=== PATIENT | female | born 1990 | race Caucasian/White ===

== ENCOUNTER → 2017-06-03 16:42 | Outpatient (CLI) | payer OTHER, SELFPAY ==
[2017-06-03 17:59] LABS: Hematocrit 31.6 % (37-47); Hemoglobin 10.2 g/dl (12.0-15.0); Mean Corp Hgb Conc 32.3 g/gl (32-36); Mean Corpuscular Hgb 30.1 pg (27.0-32.0); Mean Corpuscular Volume 93.2 fL (81-99); Mean Platelet Vol. 10.3 fl (6.2-12.0); Platelet Count 229 K/mm3 (150-450); RBC Distribution Width CV 12.5 % (11.6-14.6); RBC Distribution Width SD 42.6 fl (35.1-43.9); Red Blood Count 3.39 M/mm3 (4.2-5.4); White Blood Count 12.5 K/mm3 (4.4-11.0)
[2017-06-03 18:10] LABS: Glucose Challenge Gest 1H 50g 74 mg/dL (70-140)
[2017-06-03 18:21] LABS: Scan Indicated on CBC? Y/N NO
[2017-06-04 17:53] LABS: Ferritin 7 ng/mL (8-252); Iron 65 ug/dL (50-170); Iron Binding Capacity,Total 532 ug/dL (250-450); PERCENT IRON SATURATION 12.2 % (15.0-55.0)
== END ==
PROVIDERS: Visit Provider Obstetrics & Gynecology
DX: Z34.82 Encounter for supervision of other normal pregnancy, second trimester (principal)
CPT/HCPCS: 82728; 82950; 83540; 83550; 85027

== ENCOUNTER → 2017-07-31 16:14 | Outpatient (CLI) | payer OTHER, SELFPAY ==
[2017-07-31 18:43] LABS: Group B Strep DNA By PCR Negative (Negative); Internal Control PASS; Probe Check PASS; Specimen Processing Control PASS
== END ==
PROVIDERS: Visit Provider Obstetrics & Gynecology
DX: Z36.85 Encounter for antenatal screening for Streptococcus B (principal)
CPT/HCPCS: 87081; 87653

== ENCOUNTER 2017-08-29 11:05 | Inpatient (IN) | payer OTHER, SELFPAY ==
[2017-08-29 09:57] VITALS: BMI 29.6
--- NOTE | 2017-08-29 11:05 | DT_ITS ---
This patient was seen during an EMR downtime August 31, 2017 - September 07, 2017. This patient may have a combination of paper and electronic documentation or all paper documentation. All documentation is viewable within the e-chart portion of [facility] for each patient visit.
[2017-08-29] MEDS: Lactated Ringers 1,000 ML 50 ML IV ×4 (11:32→19:04)
[2017-08-29 11:44] LABS: Hematocrit 38.4 % (37-47); Hemoglobin 12.6 g/dl (12.0-15.0); Mean Corp Hgb Conc 32.8 g/gl (32-36); Mean Corpuscular Hgb 30.4 pg (27.0-32.0); Mean Corpuscular Volume 92.5 fL (81-99); Mean Platelet Vol. 10.3 fl (6.2-12.0); Platelet Count 233 K/mm3 (150-450); RBC Distribution Width CV 13.7 % (11.6-14.6); Red Blood Count 4.15 M/mm3 (4.2-5.4); Scan Indicated on CBC? Y/N NO; White Blood Count 13.1 K/mm3 (4.4-11.0)
[2017-08-29] MEDS: fentaNYL-bupivacaine (epidural) 100 ML BAG EPIDURAL (12:12)
[2017-08-29] MEDS: 0.9% Saline Lock 10 ML Syringe IV (15:30)
[2017-08-29] MEDS: Oxytocin 30 units/NS 500 ml 30 UNITS/500 ML IV.SOLN 334 UNITS IV (21:02)
--- NOTE | 2017-08-29 21:20 | PCM.OB.VAG ---
Vaginal Delivery Maternal Presentation: Active Labor Amniotic Membrane Rupture Type: Artificial Amniotic Fluid Description: Clear Final DILSHAD: 08/27/17 Final DILSHAD Source: US <20 weeks Gestational age: 40 Weeks and 2 Days Date of Procedure: 08/29/17 Pre-Operative Diagnosis: IUP Post-Operative Diagnosis: IUP Surgery/ Procedure Performed: Vacuum Assisted Vaginal Delivery Type of Anesthesia: Epidural Description of Procedure: Spontaneous vaginal delivery of a viable female infant with Apgars of 9/10 from an occiput anterior presentation with clear amniotic fluid and normal three-vessel placenta. Cord around the neck ?1 tight. No episiotomy. Second-degree midline laceration repaired in layers with 3-0 Vicryl suture under epidural. Kiwi vacuum suction used ?1 gentle pull from low outlet after 4 hours of pushing and increasing maternal fatigue. Sponge counts okay. Delivery physician: Leo Rebollar MD. Presentation: Vertex Placental Delivery Description: Spontaneous Placenta Disposition: [facility] Cord Vessel Description: 3 Vessels Cord Gases drawn per routine: ABG Cord Entanglement: Around neck x 1, tight Estimated Blood Loss: 350 cc Infant A gender: Female (1 minute): 9 (5 minute): 10 Episiotomy Description: None Laceration: Midline, Perineal Extension/lac, 2nd degree Medications given after delivery: IV Pitocin, IM Methergin Complications: None
--- NOTE | 2017-08-29 21:23 | OP.PCM_ITS ---
Vaginal Delivery Maternal Presentation: Active Labor Amniotic Membrane Rupture Type: Artificial Amniotic Fluid Description: Clear Final DILSHAD: 08/27/17 Final DILSHAD Source: US <20 weeks Gestational age: 40 Weeks and 2 Days Date of Procedure: 08/29/17 Pre-Operative Diagnosis: IUP Post-Operative Diagnosis: IUP Surgery/ Procedure Performed: Vacuum Assisted Vaginal Delivery Type of Anesthesia: Epidural Description of Procedure: Spontaneous vaginal delivery of a viable female infant with Apgars of 9/10 from an occiput anterior presentation with clear amniotic fluid and normal three- vessel placenta. Cord around the neck ?1 tight. No episiotomy. Second-degree midline laceration repaired in layers with 3-0 Vicryl suture under epidural. Kiwi vacuum suction used ?1 gentle pull from low outlet after 4 hours of pushing and increasing maternal fatigue. Sponge counts okay. Delivery physician: Leo Rebollar MD. Presentation: Vertex Placental Delivery Description: Spontaneous Placenta Disposition: [facility] Cord Vessel Description: 3 Vessels Cord Gases drawn per routine: ABG Cord Entanglement: Around neck x 1, tight Estimated Blood Loss: 350 cc A gender: Female (1 minute): 9 (5 minute): 10 Episiotomy Description: None Laceration: Midline, Perineal Extension/lac, 2nd degree Medications given after delivery: IV Pitocin, IM Methergin Complications: None
--- NOTE | 2017-08-29 21:23 | PCM.DCVAG ---
Discharge Diet: No Restrictions Discharge Activity: May Shower, May Take a Tub Bath May resume sexual activity in: 4-6 weeks Additional Activity Instructions:: Nothing in the vagina for 4-6 weeks. You may return to work/school in 6 weeks. Call your doctor if you observe: Fever of 101 or Higher, Inability to urinate, Inability to have a bowel movement, Using more than one pad per hour Additional Instructions: If you experience any of the following, contact your healthcare provider. Bleeding that soaks a pad every hour for 2 hours Unrelieved incision or abdominal pain Swelling, redness, discharge or bleeding from your incision or episiotomy site Your incision begins to separate Problems urinating (including inability to urinate or burning while urinating). Visual changes Severe headache Flu-like symptoms Pain or redness in one of both of your breasts Pain, warmth, tenderness or swelling in your legs, especially the calf area Frequent nausea and vomiting Symptoms of depression or anxiety If you experience any of the following, call 911 or go to the nearest Emergency Room. Chest pain Problems breathing Seizure activity Partial or complete paralysis of a body part, slurred speech, weakness or drooping of the face, or a sudden inability to walk or hold your balance Allergies/Adverse Reactions: Allergies No Known Allergies Allergy (Verified 09/24/13 08:55) Medications to take at Discharge Ferrous Sulfate [Iron] 325 mg PO 08/29/17 Vit No.130/Iron/FA [ Vitamins] 1 each PO 08/29/17 Please Follow Up With: Joanna Martin MD - [phone] When: Call to make an appointment with your doctor in 6 weeks. Primary Care Physician: Smita Tamayo MD [Primary Care Provider] -
--- NOTE | 2017-08-29 21:24 | DCINST_ITS ---
Discharge Diet: No Restrictions Discharge Activity: May Shower, May Take a Tub Bath May resume sexual activity in: 4-6 weeks Additional Activity Instructions:: Nothing in the vagina for 4-6 weeks. You may return to work/school in 6 weeks. Call your doctor if you observe: Fever of 101 or Higher, Inability to urinate, Inability to have a bowel movement, Using more than one pad per hour Additional Instructions: If you experience any of the following, contact your healthcare provider. * Bleeding that soaks a pad every hour for 2 hours * Unrelieved incision or abdominal pain * Swelling, redness, discharge or bleeding from your incision or episiotomy site * Your incision begins to separate * Problems urinating (including inability to urinate or burning while urinating) . * Visual changes * Severe headache * Flu-like symptoms * Pain or redness in one of both of your breasts * Pain, warmth, tenderness or swelling in your legs, especially the calf area * Frequent nausea and vomiting * Symptoms of depression or anxiety If you experience any of the following, call 911 or go to the nearest Emergency Room. * Chest pain * Problems breathing * Seizure activity * Partial or complete paralysis of a body part, slurred speech, weakness or drooping of the face, or a sudden inability to walk or hold your balance Allergies/Adverse Reactions: Allergies No Known Allergies Allergy (Verified 09/24/13 08:55) Medications to take at Discharge Ferrous Sulfate [Iron] 325 mg PO 08/29/17 Vit No.130/Iron/FA [ Vitamins] 1 each PO 08/29/17 Please Follow Up With: Joanna Martin MD - [phone] When: Call to make an appointment with your doctor in 6 weeks. Primary Care Physician: Smita Tamayo MD [Primary Care Provider] -
[2017-08-29] MEDS: Oxytocin 30 units/NS 500 ml 30 UNITS/500 ML IV.SOLN 167 UNITS IV (21:32)
[2017-08-30 00:45] VITALS: BP 122/63; PULSE 115; RESP 18; TEMP 36.8; O2SAT 95
[2017-08-30 05:40] VITALS: BP 114/69; PULSE 110; RESP 18; TEMP 36.8; O2SAT 98
[2017-08-30 05:42] LABS: Hemoglobin 9.9 g/dl (12.0-15.0); Mean Corpuscular Hgb 30.8 pg (27.0-32.0); Mean Corpuscular Volume 93.5 fL (81-99); Mean Platelet Vol. 10.3 fl (6.2-12.0); Platelet Count 222 K/mm3 (150-450); RBC Distribution Width CV 13.3 % (11.6-14.6); RBC Distribution Width SD 44.4 fl (35.1-43.9); Red Blood Count 3.21 M/mm3 (4.2-5.4); White Blood Count 21.9 K/mm3 (4.4-11.0)
[2017-08-30 05:45] LABS: Scan Indicated on CBC? Y/N NO
[2017-08-30] MEDS: Ibuprofen 600 MG Tablet PO ×2 (05:55→16:22)
[2017-08-30 08:30] VITALS: BP 103/61; PULSE 108; RESP 12; TEMP 37.1; O2SAT 97
--- NOTE | 2017-08-30 09:20 | PCM.PN.OB ---
Subjective: Patient without complaints. Was having some pressure but has resolved. A bit dizzy when he gets up to the restroom. Minimal vaginal bleeding present. Breast-feeding going well. Feels okay when she is resting. - Physical Exam Vital Signs AF, VSS Temp Pulse Resp BP Pulse Ox 98.8 F 108 H 12 103/61 97 08/30/17 08:30 08/30/17 08:30 08/30/17 08:30 08/30/17 08:30 08/30/17 08:30 Oxygen Delivery Method Room Air Weight: 194 lb 14.218 oz Body Mass Index (BMI) 29.6 Intake and Output for Last 24 Hours 08/28/17 08/29/17 08/30/17 23:59 23:59 23:59 Intake Total 2901 / 2901 Output Total 1400 / 1400 1050 / 1050 Balance 1501 / 1501 -1050 / -1050 Laboratory Tests Past 24 Hrs 08/29/17 08/29/17 08/30/17 11:32 11:32 05:35 WBC 13.1 H 21.9 H RBC 4.15 L 3.21 L Hgb 12.6 9.9 L Hct 38.4 30.0 L MCV 92.5 93.5 MCH 30.4 30.8 MCHC 32.8 33.0 RDW 13.7 13.3 RDW Differential 46.0 H 44.4 H Plt Count 233 222 MPV 10.3 10.3 Blood Type O POSITIVE Antibody Screen NEGATIVE Medical Necessity - Tobacco Use Smoking Status: Never smoker Assessment/Plan Doing well status post delivery day #1. Mild anemia with mild symptoms from bleeding due to uterine atony just after delivery. Stable at present. Will repeat CBC tomorrow. Continuing present care.
[2017-08-30 12:45] VITALS: BP 109/70; PULSE 88; TEMP 36.5; O2SAT 97
[2017-08-30 16:00] VITALS: BP 113/74; PULSE 99; RESP 18; TEMP 36.8
[2017-08-30] MEDS: Senna/Docusate Sodium 1 Tablet PO (16:22)
[2017-08-30 20:01] VITALS: BP 113/68; PULSE 92; RESP 16; TEMP 36.6; O2SAT 98
[2017-08-30] MEDS: oxyCODONE 5 MG Tablet PO (20:10)
[2017-08-31 02:30] VITALS: BP 128/68; PULSE 103; RESP 18; TEMP 36.8; O2SAT 96
[2017-09-03 17:14] LABS: Absolute Lymphocyte Count 1.96 X10^3/ul (0.83-4.51); Absolute Neutrophil Count 9.6 X10^3/uL (2.0-7.7); Basophil% 0.3 % (0-1); Eosinophils% 1.5 % (0-5); Hematocrit 26.1 % (37-47); Hemoglobin 8.3 g/dl (12.0-15.0); Lymphocyte # 1.96 X10^3/ul (4.0); Lymphocyte % 15.1 % (19-41); Mean Corp Hgb Conc 31.8 g/gl (32-36); Mean Corpuscular Hgb 30.6 pg (27.0-32.0); Mean Corpuscular Volume 96.3 fL (81-99); Monocyte% 8.9 % (0-10); Neutrophil # 9.55 X10^3/uL (2.7-7.7); Neutrophil % 73.5 % (47-70); POSITIVE COUNT NO; POSITIVE DIFFERENTIAL NO; POSITIVE MORPHOLOGY NO; Platelet Count 207 K/mm3 (150-450); RBC Distribution Width CV 13.5 % (11.6-14.6); RBC Distribution Width SD 44.9 fl (35.1-43.9); Red Blood Count 2.71 M/mm3 (4.2-5.4)
== END 2017-08-31 15:05 | disposition home or self-care (01) | DRG 774 ==
LOC: WPOUT 11:09
PROVIDERS: Admitting Provider Obstetrics & Gynecology; Family Provider Family Medicine; PCP Family Medicine; Visit Provider Obstetrics & Gynecology
DX: O75.81 Maternal exhaustion complicating labor and delivery (principal); O72.1 Other immediate postpartum hemorrhage; Z37.0 Single live birth; O70.1 Second degree perineal laceration during delivery; O99.013 Anemia complicating pregnancy, third trimester; D50.9 Iron deficiency anemia, unspecified; O69.1XX0 Labor and delivery complicated by cord around neck, with compression, not applicable or unspecified; Z3A.40 40 weeks gestation of pregnancy
CPT/HCPCS: 59050; 85025; 85027; 86850; 86900; 99218; J7120; A4216; G0378

== ENCOUNTER 2017-09-01 14:00 | Outpatient (CLI) | payer OTHER, SELFPAY ==
--- NOTE | 2017-09-01 14:00 | DT_ITS ---
This patient was seen during an EMR downtime August 31, 2017 - September 07, 2017. This patient may have a combination of paper and electronic documentation or all paper documentation. All documentation is viewable within the e-chart portion of [email or web address] for each patient visit.
== END 2017-09-01 15:10 | disposition home or self-care (01) ==
LOC: WPOUT 09-08 09:42
PROVIDERS: Family Provider Family Medicine; PCP Family Medicine; Visit Provider Obstetrics & Gynecology
DX: R69 Illness, unspecified (principal)

== ENCOUNTER → 2017-10-16 10:18 | Outpatient (CLI) | payer OTHER, SELFPAY ==
[2017-10-16 11:53] LABS: Hematocrit 35.6 % (37-47); Mean Corp Hgb Conc 30.9 g/gl (32-36); Mean Corpuscular Hgb 26.7 pg (27.0-32.0); Mean Corpuscular Volume 86.4 fL (81-99); Mean Platelet Vol. 10.9 fl (6.2-12.0); Platelet Count 320 K/mm3 (150-450); RBC Distribution Width CV 13.8 % (11.6-14.6); RBC Distribution Width SD 43.9 fl (35.1-43.9); Red Blood Count 4.12 M/mm3 (4.2-5.4); Scan Indicated on CBC? Y/N NO; White Blood Count 5.2 K/mm3 (4.4-11.0)
[2017-10-16 12:10] LABS: Free T3 2.8 pg/mL (2.18-3.98); T4 Free Direct 0.86 ng/dL (0.76-1.46); Thyroid Stim Hormone (TSH) 0.97 uIU/mL (0.358-3.74)
== END ==
PROVIDERS: Visit Provider Obstetrics & Gynecology
DX: D64.9 Anemia, unspecified (principal); R53.83 Other fatigue
CPT/HCPCS: 36415; 84439; 84443; 84481; 85027

== ENCOUNTER → 2019-03-25 14:30 | Outpatient (CLI) | payer OTHER, SELFPAY ==
[2019-03-29 15:34] LABS: HPV Reflexed? NOT INDICATED
== END ==
PROVIDERS: Visit Provider Obstetrics & Gynecology
DX: Z12.4 Encounter for screening for malignant neoplasm of cervix (principal)
CPT/HCPCS: 88175; G0145

== ENCOUNTER → 2020-05-30 16:09 | Outpatient (CLI) | payer OTHER, SELFPAY | PROVIDERS: Visit Provider Obstetrics & Gynecology | DX: R30.0 Dysuria (principal); R35.0 Frequency of micturition | CPT/HCPCS: 87086; 87088 ==

== ENCOUNTER → 2020-07-04 17:03 | Outpatient (CLI) | payer OTHER, SELFPAY ==
--- NOTE | 2020-07-04 17:12 | RAD_ITS ---
HISTORY: Pain in left humerus distally and medially for 4 or 5 months. No known injury. Technique: Left arm AP, lateral, radiographs Comparison: None available Findings: No acute fracture or dislocation. Osseous mineralization, joint spaces, and alignment otherwise appear preserved as imaged. No focal abnormality or radiopaque foreign body is seen in the surrounding soft tissues. RAD/Humerus min 2 Views IMPRESSION: No acute osseous abnormality identified in the arm. at 2205 Reported and signed by: Nate Barger MD Electronically Signed: Nate Barger MD at 22:04 EDT Tel , Service support ,
== END ==
PROVIDERS: PCP Family Medicine; Referring Provider Family Medicine; Visit Provider Family Medicine
DX: M79.602 Pain in left arm (principal)
CPT/HCPCS: 73060

== ENCOUNTER → 2020-07-18 13:34 | Outpatient (CLI) | payer OTHER, SELFPAY ==
--- NOTE | 2020-07-18 13:37 | US_ITS ---
STUDY: ULTRASOUND BREAST - RIGHT REASON FOR EXAM: Female, 29 years old. Pain in the right breast. TECHNIQUE: Axial and longitudinal images of the RIGHT breast were performed with a high resolution ultrasound transducer. # OF IMAGES: 40 COMPARISON: Comparison is made with prior mammogram done earlier today. FINDINGS: RIGHT Breast: The retroareolar region was examined by ultrasound. No sonographic abnormality is seen. IMPRESSION: No sonographic abnormality is seen. ASSESSMENT CATEGORY: BIRADS Category 1: Negative. A letter regarding these results will be sent to the patient by the facility within 30 days. Electronically Signed: Wilberto De Paz MD at 15:15 EDT , Service support , STUDY: ULTRASOUND BREAST - LEFT REASON FOR EXAM: Female, 29 years old. Pain in the left breast. TECHNIQUE: Axial and longitudinal images of the LEFT breast were performed with a high resolution ultrasound transducer. # OF IMAGES: 40 COMPARISON: Comparison is made with prior mammogram done earlier in the day. FINDINGS: LEFT Breast: The retroareolar region of the breast was examined by ultrasound. No sonographic abnormality is seen. US/Breast Limited Unilateral IMPRESSION: No sonographic abnormality is seen. ASSESSMENT CATEGORY: BIRADS Category 1: Negative. A letter regarding these results will be sent to the patient by the facility within 30 days. Electronically Signed: Wilberto De Paz MD at 15:16 EDT , Service support ,
--- NOTE | 2020-07-18 13:37 | BI_ITS ---
MAMMOGRAPHY - BILATERAL DIAGNOSTIC REASON FOR EXAM: Female, 29 years old. Bilateral mastodynia. Retroareolar pain. PERTINENT HISTORY: Non-contributory. TECHNIQUE: Digital bilateral breast sheri (3D mammographic acquisition) in the CC and MLO projections. 2-D mediolateral oblique (MLO) and craniocaudad (CC) views of both breasts were obtained. CAD: Full Field Digital Mammography with Computer Added Detection was performed. COMPARISON: None. Baseline examination. FINDINGS: Breast Composition: The breasts are extremely dense, which lowers the sensitivity of mammography. There are no dominant masses or suspicious calcifications. Small benign appearing bilateral axillary lymph nodes. No other significant abnormalities are identified. BI/DIAG MAMM W/CAD, BILAT IMPRESSION: Negative diagnostic mammogram. With the patient''s history of bilateral breast pain, correlation with ultrasound is recommended. ASSESSMENT CATEGORY: BIRADS Category 0: Incomplete. Need additional imaging evaluation. A letter regarding these results will be sent to the patient by the facility within 30 days. Approximately 10% of breast cancers are not detected by mammography. A normal mammogram should not delay biopsy of a clinically suspicious abnormality. Electronically Signed: Wilberto De Paz MD at 14:55 EDT , Service support ,
== END ==
PROVIDERS: PCP Family Medicine; Referring Provider Obstetrics & Gynecology; Visit Provider Obstetrics & Gynecology
DX: N64.4 Mastodynia (principal)
CPT/HCPCS: 76642; 77062; 77066; G0279

== ENCOUNTER → 2020-08-01 16:23 | Outpatient (CLI) | payer OTHER, SELFPAY ==
[2020-08-01 17:14] LABS: Prolactin 25.5 ng/mL
== END ==
PROVIDERS: PCP Family Medicine; Referring Provider Obstetrics & Gynecology; Visit Provider Obstetrics & Gynecology
DX: N64.4 Mastodynia (principal)
CPT/HCPCS: 36415; 84146

== ENCOUNTER → 2020-08-16 17:01 | Outpatient (CLI) | payer OTHER, SELFPAY ==
--- NOTE | 2020-08-16 17:10 | MRI_ITS ---
STUDY: MRI BRAIN WITH AND WITHOUT CONTRAST (ATTENTION PITUITARY GLAND) REASON FOR EXAM: Female, 29 years old. HYPERPROLACTINEMIA TECHNIQUE: Standardized multiplanar fat and water weighted pulse sequences were obtained. IV 14cc dotarem was administered for the contrast portion of the examination. COMPARISON: None. FINDINGS: Normal size of the pituitary gland for the patient?s age and gender. Normal enhancement of the pituitary gland, without a demonstrated intrapituitary lesion. Normal infundibular stalk and suprasellar cistern. Normal optic chiasm and hypothalamus. Normal size of the ventricles and extra-axial spaces for the patient''s age. Normal white matter tracts of the supratentorial brain. There is no evidence for recent intracranial ischemia or other cause of cytotoxic edema on diffusion weighted imaging (DWI). Normal bilateral basal ganglia. Normal thalami. Normal flow voids within the major intracranial circulation suggesting patency by spin echo criteria. Normal venous enhancement. There is no enhancing intra-axial or extra-axial abnormality. There is no extra-axial fluid accumulation. Normal tectal plate and pineal gland. Normal midbrain, erasmo and medulla. Normal cerebellum. Normal basal cisterns. Normal bilateral temporal bones. Normal bilateral internal auditory canals. No demonstrated orbital abnormality, within the constraints of a routine brain study. Normal visualized paranasal sinuses. Normal calvarium and skull base. Normal visualized upper cervical spine. Normal visualized soft tissue structures. MRI/Brain W/WO Contrast IMPRESSION: Normal unenhanced and enhanced MRI of the pituitary gland. Electronically Signed: Nikolay Washington MD at 9:25 EDT Tel , Service support ,
== END ==
PROVIDERS: PCP Family Medicine; Referring Provider Obstetrics & Gynecology; Visit Provider Obstetrics & Gynecology
DX: E22.1 Hyperprolactinemia (principal)
CPT/HCPCS: 70553; A9575

== ENCOUNTER → 2020-09-13 16:09 | Outpatient (CLI) | payer OTHER, SELFPAY | PROVIDERS: PCP Family Medicine; Visit Provider Obstetrics & Gynecology | DX: R30.0 Dysuria (principal) | CPT/HCPCS: 87086; 87088 ==

== ENCOUNTER → 2020-09-25 16:54 | Outpatient (CLI) | payer OTHER, SELFPAY | PROVIDERS: PCP Family Medicine; Visit Provider Obstetrics & Gynecology | DX: N30.00 Acute cystitis without hematuria (principal) | CPT/HCPCS: 87086 ==

== ENCOUNTER → 2021-01-04 16:06 | Outpatient (CLI) | payer OTHER, SELFPAY ==
[2021-01-07 22:06] LABS: Chlamydia By Nucleic Acid AMP Negative (Negative)
[2021-01-08 07:56] LABS: Gonococcus By Nucleic Acid AMP Negative (Negative)
== END ==
PROVIDERS: PCP Family Medicine; Visit Provider Obstetrics & Gynecology
DX: Z11.3 Encounter for screening for infections with a predominantly sexual mode of transmission (principal)
CPT/HCPCS: 87491; 87591

== ENCOUNTER → 2021-01-23 18:06 | Outpatient (CLI) | payer OTHER, SELFPAY | PROVIDERS: PCP Family Medicine; Visit Provider Family Medicine | DX: J02.9 Acute pharyngitis, unspecified (principal) | CPT/HCPCS: 87070 ==

== ENCOUNTER → 2021-02-01 14:12 | Outpatient (CLI) | payer OTHER, SELFPAY ==
[2021-02-01 16:00] LABS: Absolute Lymphocyte Count 1.92 X10^3/uL (0.83-4.51); Absolute Neutrophil Count 8.5 X10^3/uL (2.0-7.7); Basophil# 0.07 X10^3/uL; Basophil% 0.6 % (0-1); Eosinophil# 0.03 X10^3/uL; Eosinophils% 0.3 % (0-5); Hematocrit 36.2 % (37-47); Hemoglobin 11.9 g/dL (12.0-15.0); Lymphocyte # 1.92 X10^3/ul (0.83-4.51); Lymphocyte % 16.9 % (19-41); Mean Corp Hgb Conc 32.9 g/dL (32-36); Mean Corpuscular Volume 88.3 fL (81-99); Mean Platelet Vol. 11.2 fl (6.2-12.0); Monocyte# 0.74 X10^3/uL; Monocyte% 6.5 % (0-10); NRBC Flagged by Analyzer 0 % (0-5); Neutrophil # 8.53 X10^3/uL (2.7-7.7); Neutrophil % 75.3 % (47-70); Platelet Count 292 K/mm3 (150-450); RBC Distribution Width CV 12.7 % (11.6-14.6); RBC Distribution Width SD 41.4 fl (35.1-43.9); White Blood Count 11.3 K/mm3 (4.4-11.0)
[2021-02-01 16:10] LABS: Amphetamine Urine VISTA NEGATIVE (<1000 ng/mL); Barbiturate Urine VISTA NEGATIVE (< 200 ng/mL); Benzodiazepine Urine VISTA NEGATIVE (< 200 ng/mL); Cocaine Urine VISTA NEGATIVE (< 300 ng/mL); Ecstacy Urine VISTA NEGATIVE (< 500 ng/mL); Methadone Urine VISTA NEGATIVE (< 300 ng/mL); PCP Urine VISTA NEGATIVE (< 25 ng/mL); THC Urine VISTA NEGATIVE (< 50 ng/mL); Vista UDS pH Range 6
[2021-02-01 16:18] LABS: Thyroid Stim Hormone (TSH) 0.45 uIU/mL (0.358-3.74)
[2021-02-01 16:23] LABS: Color, Urine Yellow (Yellow); Glucose, Dipstick Normal (Normal); Ketone-Dipstick 5 mg/dl (Negative); Leukocyte Esterase-Dipstick 25 /ul (Negative); Nitrite-Dipstick Negative (Negative); Occult Blood-Urine Negative /ul (Negative); Protein-Dipstick Negative (Negative); Urine Bilirubin Dipstick Negative (Negative); Urine Clarity Sl. Cloudy (Clear); Urine Urobilinogen Normal (Normal)
[2021-02-04 09:36] LABS: HIV - WCH Non-Reactive (Nonreactive); Hepatitis B Surface Antigen Non-Reactive (Nonreactive); Hepatitis C Antibody Non-Reactive (Nonreactive); Rubella IgG Reactive (Nonreactive); Syphilis Antibodies Non-reactive
== END ==
PROVIDERS: PCP Family Medicine; Visit Provider Obstetrics & Gynecology
DX: Z34.81 Encounter for supervision of other normal pregnancy, first trimester (principal)
CPT/HCPCS: 36415; 80307; 81002; 84443; 85025; 86703; 86762; 86780; 86803; 87086; 87088; 87340

== ENCOUNTER → 2021-02-19 16:43 | Outpatient (CLI) | payer OTHER, SELFPAY | PROVIDERS: PCP Family Medicine; Visit Provider Otolaryngology | DX: J02.9 Acute pharyngitis, unspecified (principal) | CPT/HCPCS: 87070 ==

== ENCOUNTER 2021-06-07 15:01 | Outpatient (CLI) | payer OTHER, SELFPAY ==
[2021-06-07 16:11] LABS: Hematocrit 31.3 % (37-47); Hemoglobin 10.5 g/dL (12.0-15.0); Mean Corp Hgb Conc 33.5 g/dL (32-36); Mean Corpuscular Hgb 30.2 pg (27.0-32.0); Mean Corpuscular Volume 89.9 fL (81-99); Mean Platelet Vol. 10.6 fl (6.2-12.0); Platelet Count 295 K/mm3 (150-450); RBC Distribution Width CV 12.6 % (11.6-14.6); RBC Distribution Width SD 41.5 fl (35.1-43.9); Red Blood Count 3.48 M/mm3 (4.2-5.4); White Blood Count 11.6 K/mm3 (4.4-11.0)
[2021-06-07 16:19] LABS: Glucose Challenge Gest 1H 50g 86 mg/dL (70-140)
[2021-06-11 18:15] LABS: Ferritin 7 ng/mL (8-252)
== END 2021-06-07 23:59 | disposition home or self-care (01) ==
LOC: WOBLAB 15:02
PROVIDERS: PCP Family Medicine; Visit Provider Obstetrics & Gynecology
DX: O99.012 Anemia complicating pregnancy, second trimester (principal); Z3A.00 Weeks of gestation of pregnancy not specified
CPT/HCPCS: 36415; 82728; 82950; 85027

== ENCOUNTER → 2021-08-13 | Outpatient (CLI) | payer OTHER, SELFPAY ==
[2021-08-13 17:01] LABS: Hematocrit 33.2 % (37-47); Hemoglobin 10.8 g/dL (12.0-15.0); Mean Corp Hgb Conc 32.5 g/dL (32-36); Mean Corpuscular Hgb 30.6 pg (27.0-32.0); Mean Corpuscular Volume 94.1 fL (81-99); Mean Platelet Vol. 10.6 fl (6.2-12.0); Platelet Count 236 K/mm3 (150-450); RBC Distribution Width SD 47.9 fl (35.1-43.9); Red Blood Count 3.53 M/mm3 (4.2-5.4); White Blood Count 10.9 K/mm3 (4.4-11.0)
[2021-08-13 18:36] LABS: Ferritin 15 ng/mL (8-252); Iron 156 ug/dL (50-170); Iron Binding Capacity,Total 515 ug/dL (250-450)
== END | disposition home or self-care (01) ==
LOC: WOBLAB 15:27
PROVIDERS: PCP Family Medicine; Visit Provider Obstetrics & Gynecology
DX: O99.02 Anemia complicating childbirth (principal); D50.9 Iron deficiency anemia, unspecified; Z3A.00 Weeks of gestation of pregnancy not specified
CPT/HCPCS: 36415; 82728; 83540; 83550; 85027; 87081

== ENCOUNTER 2021-09-05 05:40 | Outpatient (CLI) | payer OTHER, SELFPAY ==
[2021-09-05 05:54] VITALS: BP 114/79; PULSE 92; TEMP 36.7
[2021-09-05 05:56] VITALS: BMI 29.9
[2021-09-05 06:30] LABS: ROM Internal Control Test YES-OK TO RESULT pt. (Internal QC); ROM Patient Test Negative (Negative)
--- NOTE | 2021-09-11 09:30 | OB.TRI.NOTE ---
HPI - General General Date of Admission: 09/05/21 Date of Service: 09/05/21 HPI Narrative LALI FROREST, is a 30 F who presents at term with a gush of fluid at home. Minimal contractions were noted. PFSH PFSH Home Medications ferrous sulfate 325 mg (65 mg iron) tablet (Iron (ferrous sulfate)) 325 mg PO ANEMIA 08/29/17 [History Last Taken 09/04/21 19:00] vits no.130-ferrous fum 27 mg iron-folic acid 800 mcg tablet ( Vitamin) 1 ea PO 08/29/17 [History Last Taken 09/04/21 19:00] Allergy/AdvReac Type Severity Reaction Status Date / Time No Known Allergies Allergy Verified 09/24/13 08:55 Surgical History (Updated 09/05/21 @ 06:20 by Yaneli Murcia) History of surgery Social History Smoking Status: Never smoker History Elective abortions Hx Para 0 Spontaneous abortions Hx # Term Pregnancies Ectopic pregnancies Hx # Pregnancies Multiple births # of living children NST FHR Rate Baby A NST Reactive:: Yes FHR Category:: Category I Assessment & Plan (1) Leakage, amniotic fluid: PLAN: Plan Term intrauterine with some leaking of vaginal fluid. ROM test is negative. Reactive nonstress test. Minimal contractions and cervix nonthreatening. Will discharge to home with routine instructions for labor.
== END 2021-09-05 06:49 | disposition home or self-care (01) ==
LOC: WPOUT 05:44 → WP 05:44
PROVIDERS: PCP Family Medicine; Visit Provider Obstetrics & Gynecology
DX: O42.90 Premature rupture of membranes, unspecified as to length of time between rupture and onset of labor, unspecified weeks of gestation (principal); Z3A.00 Weeks of gestation of pregnancy not specified
CPT/HCPCS: 59025; 59050; 84112; 99218; G0378

== ENCOUNTER 2021-09-13 06:58 | Inpatient (IN) | payer OTHER, SELFPAY ==
[2021-09-13] VITALS (74 sets, daily range): BP systolic 112–162; BP diastolic 66–93; PULSE 73–160; TEMP 36.3–36.9; O2SAT 92–100; BMI 29.9
--- NOTE | 2021-09-13 07:30 | HP.PCM.OB_ITS ---
History and Physical Date of Admission: 09/13/21 ACOG ANTEPARTUM RECORD - HISTORY AND PHYSICAL (09/13/2021) Name: LALI REESE History of this : This is a 30 year old [id number] presents at 41 wks + 1 days gestation for scheduled induction of labor. OB Physician: Joanna Pimentel MD 's Physician: [facility] ...................................................................... : 1990 Age: 30 Address: [address] [place], [place] [address] Phone: (h) [phone] (O) [phone] Insurance Carrier: [facility] [id number] Emergency Contact: MAXWELL REESE/JED [phone] ...................................................................... Final DILSHAD: 09/05/21 By Ultrasound: PARITY: (G-Total Pregnancies P-Fullterm,Premature,Induced AB,Spont AB, Ectopics, Multiple,Living) DILSHAD CONFIRMATION: By LMP: 11/29/20 Initial Exam: 08/19/17 Final DILSHAD: 09/05/21 OB PROBLEM LIST: States close to needing transfusing after last del. Asking how to prevent. Is on gummy vitamins- unsure if iron included. Declines carrier screening, undecided about genetic screening EPDS today = 5 Has had flu shot & 2 Covid19. Considering booster. ALLERGIES: NKDA MEDICATIONS: ferrous sulfate 325 mg (65 mg iron) tablet One pill by mouth twice a day Gummies 400 mcg-35 mg-25 mg-5 mg chewable tablet One pill by mouth twice a day SOCIAL HISTORY: Smoking - Never Alcohol Use - RARELY not while Diet - One coffee q day. Water at least liter+ day. Lifestyle - moderate stress lifestyle Exercise - active work and Enc to walk 15-20 min. Employer - [employer] Job Description - [employer] Illicit Drug Use - denies use of street drugs Sexual Activity - Residence - lives with Hours Worked - 40 hours per week Spouse-Sig Other Name - Maxwell Reese Spouse-Sig Other Occupation - PT Tech in [employer] Spouse-Sig Other Phone No - [phone] Children Name(s) - Maren PRIOR DELIVERY HISTORY DEL DATE GEST LAB WT LB WT OZ TYPE ANES LABOR TX 02 Aug 18 40 23 8 9 Vacuu Epidural No ANTEPARTUM FLOW CHART VISIT GE RTC FU F F NH U U DATE WK MD WKS HT PN HR M SS BP ED WT NH GL D EF ST __ ____ ___ __ __ ___ __ __ __ ___ __ __ __ ___ __ 14 Aug 40 SHM 1 38 + + 130/82 sl 197 ne ne 2 50 -3 07 Aug 39 SHM 1 39 V + + 108/76 1+ 196 - - 2 50 -3 27 August 38 SHM 1 37 V + + 130/72 0 194 tr - 0 0 -5 July SHM 1 37 V + + 112/70 sl 191 tr ne 13 August 36 SHM 1 36 V + + 130/84 sl 192 tr - 02 July 34 JM 2 34 V + + 120/68 sl 187 tr - Jun 33 SHM 2 33 V + + 124/86 0 181 tr - 14 Jun 32 JM 2 32 V + + 128/74 0 180 - - Jun 26 SHM 2 30 V + + 124/68 sl 179 - - 11 Jun 23 SHM 3 27 + + 102/64 0 173 tr ne May 21 SHM 4 22 + + 124/78 0 167 - - Apr 17 SHM 4 19 + US 106/76 0 165 1+ ne Mar 11 SHM 4 13 + ? 110/64 0 161 tr - 05 Feb 05 SHM 4 + o 108/78 166 - - ANTEPARTUM NOTE(S): Sep 10 2021: FM well Sep 03 2021: marcio reno, cervix check Aug 27 2021: doing well Aug 20 2021: Aug 13 2021: GBS today Jul 29 2021: Jul 23 2021: see note Jul 11 2021: Jun 27 2021: Jun 07 2021: CBC, 1hgt completed today. May 07 2021: doing well Apr 12 2021: No concerns, having a girl Feb 28 2021: doing well Feb 01 2021: COMPREHENSIVE ANTEPARTUM NOTE(S): Sep 10 2021: Scheduled for IOL. r/b/i/a reviewed. Cytotec. Sep 10 2021: Induction scheduled for tonight. Cytotec, paperwork faxed. LMT Sep 03 2021: Lali is here for a pnv at 39/5. Good FM. 1+ edema present in b/l ankles. Denies ctx's. Occasional marcio reno. Pelvic pressure present. Desires cervix check at this time. MK Sep 03 2021: LOIS 8.5cm with MVP 3cm. Preeclampsia, FM, labor precautions. Plans expectant managment. Aug 27 2021: Reviewed FM, SROM, and labor. LMT Aug 27 2021: CEPHALIC on US today with grossly normal LOIS. Reviewed si/sx preeclampsia, labor, FM precautions. Aug 21 2021: H faxed to OB. tkg Aug 20 2021: Lali is here for visit at 37.5 w gest. Feeling well. Baby active. Having some BH contr at home occ. Declines cervix check today. Occ heartburn. Generally drinking some milk settles it. No specific concerns to discuss today. DRC. Aug 13 2021: Lali is here for visit. She is getting more uncomfortable and has increased heartburn in the pm. Ok to take Pepcid if desires. FM, SROM, and labor reviewed. GBS today. LARC declined. LMT Aug 13 2021: Reports concern about persistently low Fe levels despite PO supplementation, continues to sores on tongue - previously related to Fe levels. Repeat CBC, iron studies today. Consider Fe infusion if significantly worsening anemia. Jul 29 2021: Lali is 32w4d here for PNV good FM slight edema in ankels no other concerns today. BR Jul 29 2021: 34 weeks, no complaints. JM Jul 23 2021: Lali is here for evaluation of ? leaking fluid. She relates that she noticed this several days ago. Urine dip is negative, no blood, leuks, or nitrate, trace protein only. Feels like she had more watery discharge last time also. LMT Jul 23 2021: pH<4.5, Wet prep neg, neg pool/nitrazine/fern. Precautions reviewed. Jul 11 2021: Lali is 32w doing well good FM no edema. No concerns BR Jul 11 2021: 32wks, no complaints. JM Jun 27 2021: Lali is 30weeks here for PNV good FM slight edema. Has some questions about an antibiotic she was prescribed for after intercourse. BR Jun 27 2021: Postcoital Macrobid ok throught 35wga. 1h GTT wnl, Fe def anemia. tolerates Fe supplement well. May 07 2021: Lali is here for visit. She is doing well but asking if she needs CBC to ck for anemia? Advised done in early and ok. Will ck next visit with GCT. Glucola given with instructions. Reviewed FM in early . LMT Apr 12 2021: Lali is here for a pnv/US at 19/. Good FM. No edema present. Denies concerns/ questions at this time. MK Apr 12 2021: Anatomy US wnl, EFW 28th%, POSTERIOR placenta. ok for . Marciostephany [place], PTL precautions. Feb 28 2021: labs wnl. Rh positive reviewed. Discussed diet, calcium and protein intake. No travel plans for holidays. Feels movement on occasion. Will plan 6w f/u with anatomy scan at that time since feeling well. Feb 18 2021: TELEHEALTH LALIT Pizano is a 30 yo G 2 P 1 with DILSHAD 09-05-21 planning a vag del w epidural at [facility] using [facility] and to initiate for the colostrum then probably switch to formula. She is a [employer]or working FT. Her , Maxwell works in [employer] for [employer]. The was planned and they are pleased. 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 REVIEW OF SYSTEMS: GENERAL - Denies fever, or chills SKIN - Denies rash, new skin lesions, or change in moles EYES - Denies blurred vision, or change in visual acuity EARS - Denies ear pain, or difficulty hearing NOSE - Denies nasal congestion, discharge, or bleeding MOUTH - Denies sore throat, or difficulty swallowing NECK - Denies pain or swelling RESPIRATORY - Denies shortness of breath, cough, wheezing CARDIOVASCULAR - Denies palpitations, chest pain, orthopnea, PND, peripheral edema, syncope or claudication GASTROINTESTINAL - Denies nausea, vomiting, diarrhea, constipation, Denies abdominal pain, melena and or bright red blood GENITOURINARY - Denies dysuria, frequency of urination, urgency, or hesitancy MUSCULOSKELETAL - Denies joint or muscle pain, or back pain NEUROLOGICAL - Denies localized numbness, weakness, or tingling PSYCHIATRIC - Denies depression, anxiety, substance abuse or suicide attempts ENDOCRINE - Denies heat or cold intolerance, weight loss or gain, increasing thirst HEMATO-IMMUNOLOGIC - Denies easy bruising, bleeding, oral ulcerations or recurrent infections GENETICS SCREENING: Age 35+ years: No Thalassemia: No Neural Tube Defect: No Down Syndrome: No ABIGAIL-SACHS: No Sickle Cell Disease: No Hemophilia: No Musc. Dystrophy: No Cystic Fibrosis: No-declines screening [place] Chorea: No Mental Retardation: No Fragile X: No Other genetic: No Other defects: No SABs/still births: No Drugs since LMP: No INFECTION HISTORY: High risk AIDS: No High risk Hepatitis: No Exposed to TB: No Exposed to Herpes: No Rash/viral illness since LMP: No History of STD: No MENSTRUAL HISTORY: *Menses Amount/Duration: 5 daysMenses Regularity: regularFrequency: monthlyMenarche (Age Onset): 13* PAST SUMMARY: PARITY: 1. Total Pregnancies............ 2 2. Full Term Pregnancies........ 1 3. Premature.................... 0 4. Abortions - Induced.......... 0 5. Abortions - Spontaneous...... 0 6. Ectopics..................... 0 7. Multiple Births.............. 0 8. Living Children.............. 1 PAST #1: Date of :.................. 08/29/17 Gestation Weeks:................ 40 Length of labor(hours):......... 23 Sex:............................ F Weight-lbs:............... 8 Weight-oz:................ 9 Type of Delivery:............... Vacuum Type of Anesthesia:............. Epidural Place of Delivery:.............. [facility] Treatment of Labor?:.... No Comment: PROLONGED 2ND STAGE PHYSICAL EXAMINATION General Appearence: 30 yo female in no acute distress Vital Signs: AF, VSS Heart: RRR without rubs or gallops Lungs: CTA x 2 Breasts: deferred Abdomen: gravid Pelvis: Cervix: Presentation: cephalic Station: Fetus: Size: AGA Movement: present Heart: present LAB TEST(S) ORDERED SINCE:12/09/20 02/04/2021 RUBELLA IGG 02/04/2021 L509.8000 02/04/2021 HIV - [facility] 02/04/2021 HEPATITIS C ANTIBODY 02/04/2021 HEPATITIS B SURFACE ANTIGEN 02/03/2021 URINE CULTURE 02/01/2021 URINE DRUG SCREEN (VISTA) 02/01/2021 URINALYSIS, ROUTINE (DIPSTICK) 02/01/2021 THYROID STIM HORMONE (TSH) 02/01/2021 T AND S-NO CHARGE W/PNP 02/01/2021 CBC W/DIFF, AUTOMATED 01/08/2021 CHLAMYDIA/GC ALMA APTIMA 09/05/2021 (ROM) RUPTURE OF MEMBRANES 08/16/2021 RULE OUT BETA STREP (GRP. B) 08/13/2021 IRON BINDING CAPACITY,TOTAL 08/13/2021 IRON 08/13/2021 FERRITIN 08/13/2021 CBC-COMPLETE BLOOD CNT NO DIFF 06/11/2021 FERRITIN 06/07/2021 GLUCOSE CHALLENGE GEST 1H 50G 06/07/2021 CBC-COMPLETE BLOOD CNT NO DIFF == ==== Order Observation Description Value Ref_Range A* Site == ==== (ROM) RUPTURE O NOTE AYALA (ROM) RUPTURE O ROM Negative Negative ML Amniotic fluid not present indicates No Rupture of Membranes at time of specimen collection. FERRITIN NOTE AYALA FERRITIN FERRITIN 15 ng/mL 8-252 ML IRON NOTE AYALA IRON IRON 156 ug/dL 50-170 ML IRON BINDING CA NOTE AYALA IRON BINDING CA TIBC 515 ug/dL 250-450 H ML CBC-COMPLETE BL NOTE AYALA CBC-COMPLETE BL WBC 10.9 K/mm3 4.4-11.0 ML CBC-COMPLETE BL RBC 3.53 M/mm3 4.2-5.4 L ML CBC-COMPLETE BL HGB 10.8 g/dL 12.0-15.0 L ML CBC-COMPLETE BL HCT 33.2 37-47 L ML CBC-COMPLETE BL MCV 94.1 fL 81-99 ML CBC-COMPLETE BL MCH 30.6 pg 27.0-32.0 ML CBC-COMPLETE BL MCHC 32.5 g/dL 32-36 ML CBC-COMPLETE BL RDW CV 14.0 11.6-14.6 ML CBC-COMPLETE BL RDW SD 47.9 fl 35.1-43.9 H ML CBC-COMPLETE BL PLT 236 K/mm3 150-450 ML CBC-COMPLETE BL MPV 10.6 fl 6.2-12.0 ML RULE OUT BETA S NOTE AYALA FERRITIN NOTE AYALA FERRITIN FERRITIN 7 ng/mL 8-252 L ML GLUCOSE CHALLEN NOTE AYALA GLUCOSE CHALLEN GLU GEST 50G 1H 86 mg/dL 70-140 ML CBC-COMPLETE BL NOTE AYALA CBC-COMPLETE BL WBC 11.6 K/mm3 4.4-11.0 H ML CBC-COMPLETE BL RBC 3.48 M/mm3 4.2-5.4 L ML CBC-COMPLETE BL HGB 10.5 g/dL 12.0-15.0 L ML CBC-COMPLETE BL HCT 31.3 37-47 L ML CBC-COMPLETE BL MCV 89.9 fL 81-99 ML CBC-COMPLETE BL MCH 30.2 pg 27.0-32.0 ML CBC-COMPLETE BL MCHC 33.5 g/dL 32-36 ML CBC-COMPLETE BL RDW CV 12.6 11.6-14.6 ML CBC-COMPLETE BL RDW SD 41.5 fl 35.1-43.9 ML CBC-COMPLETE BL PLT 295 K/mm3 150-450 ML CBC-COMPLETE BL MPV 10.6 fl 6.2-12.0 ML HEPATITIS C ANT NOTE AYALA HEPATITIS C ANT HEPATITIS C AB Non-Reactive Nonreactive ML Non Reactive: < 0.8 Equivocal: >/= 0.8 to < 1.0 Reactive: >/= 1.0 The CDC recommends that a reactive/equivocal HCV antibody result be followed up by the HCV Nucleic Acid Amplification test ([id number]) HEPATITIS B RUBEN NOTE AYALA HEPATITIS B RUBEN HEP B SURF AG Non-Reactive Nonreactive ML HIV - [facility] NOTE AYALA HIV - [facility] HIV Non-Reactive Nonreactive ML L509.8000 NOTE AYALA L509.8000 SYPHILIS ABS Non-reactive ML RUBELLA IGG NOTE AYALA RUBELLA IGG RUBELLA IGG Reactive Nonreactive ML Antibody Results Interpretation of Immune Status Non Reactive Presumed Non-Immune Equivocal Equivocal Reactive Presumed Immune URINE CULTURE NOTE AYALA PN N [facility]~[address] [place], [address]~ T AND AB SCREEN GEL NEGATIVE ML URINALYSIS, ROU NOTE AYALA URINALYSIS, ROU COLOR Yellow Yellow ML URINALYSIS, ROU URINE CLARITY Sl. Cloudy Clear ML URINALYSIS, ROU GLUCOSE, UR Normal mg/dl Normal ML URINALYSIS, ROU BILIRUBIN URINE Negative mg/dL Negative ML URINALYSIS, ROU KETONE UR 5 mg/dl Negative A ML URINALYSIS, ROU SP.GR. DIPSTX 1.020 1.002-1.030 ML URINALYSIS, ROU PH UR 6.0 5.0 - 8.0 ML URINALYSIS, ROU PROT DIPSTX Negative mg/dl Negative ML URINALYSIS, ROU UROBILI Normal mg/dl Normal ML URINALYSIS, ROU NITRITE Negative Negative ML URINALYSIS, ROU OCCULT BLOOD-UR Negative /ul Negative ML URINALYSIS, ROU LEUK ESTERASE 25 /ul Negative A ML THYROID STIM HO NOTE AYALA THYROID STIM HO TSH 0.45 uIU/mL 0.358-3.74 ML URINE DRUG SCRE NOTE AYALA URINE DRUG SCRE VISTA UDS PH 6 ML URINE DRUG SCRE AMPHETAMINES NEGATIVE <1000 ng/mL ML URINE DRUG SCRE BARBITIURATES NEGATIVE < 200 ng/mL ML URINE DRUG SCRE BENZODIAZIPINE NEGATIVE < 200 ng/mL ML URINE DRUG SCRE COCAINE NEGATIVE < 300 ng/mL ML URINE DRUG SCRE ECSTACY NEGATIVE < 500 ng/mL ML URINE DRUG SCRE METHADONE NEGATIVE < 300 ng/mL ML URINE DRUG SCRE OPIATES NEGATIVE < 300 ng/mL ML URINE DRUG SCRE PCP NEGATIVE < 25 ng/mL ML URINE DRUG SCRE THC NEGATIVE < 50 ng/mL ML CBC W/DIFF, AUT NOTE AYALA CBC W/DIFF, AUT WBC 11.3 K/mm3 4.4-11.0 H ML CBC W/DIFF, AUT RBC 4.10 M/mm3 4.2-5.4 L ML CBC W/DIFF, AUT HGB 11.9 g/dL 12.0-15.0 L ML CBC W/DIFF, AUT HCT 36.2 37-47 L ML CBC W/DIFF, AUT MCV 88.3 fL 81-99 ML CBC W/DIFF, AUT MCH 29.0 pg 27.0-32.0 ML CBC W/DIFF, AUT MCHC 32.9 g/dL 32-36 ML CBC W/DIFF, AUT RDW CV 12.7 11.6-14.6 ML CBC W/DIFF, AUT RDW SD 41.4 fl 35.1-43.9 ML CBC W/DIFF, AUT PLT 292 K/mm3 150-450 ML CBC W/DIFF, AUT MPV 11.2 fl 6.2-12.0 ML CBC W/DIFF, AUT NEUT% 75.3 47-70 H ML CBC W/DIFF, AUT LY% 16.9 19-41 L ML CBC W/DIFF, AUT MONO% 6.5 0-10 ML CBC W/DIFF, AUT EO% 0.3 0-5 ML CBC W/DIFF, AUT BASO% 0.6 0-1 ML CBC W/DIFF, AUT IG% 0.400 0.0-0.9 ML IG% - Immature Granulocytes (promyelocytes, myelocytes and metamyelocytes) > 1% indicates that a LEFT SHIFT is Present. CBC W/DIFF, AUT ABSOLUTE NEUT 8.5 X10 3/uL 2.0-7.7 H ML CBC W/DIFF, AUT ABSOLUTE LYMPH 1.92 X10 3/uL 0.83-4.51 ML CBC W/DIFF, AUT NUCLEATED RBC 0 0-5 ML CHLAMYDIA/GC NA NOTE AYALA CHLAMYDIA/GC NA CHLAMY,NUC ACID Negative Negative LCI CHLAMYDIA/GC NA GC BY NUC ACID Negative Negative LCI Performed at: =G - [facility] [address] [facility] [place] [id number] Interior Design Professional: Erna Nguyen MD, Phone: [phone] Group B Beta Streptococcus is not isolated. Mixed Gram Positive Organisms Walker Count 1000-10,000 MIXC Mixed contaminants. Submit a new specimen if indicated. O POSITIVE == ==== Impression /Plan: 41 wks + 1 days intrauterine . Preparations in progress for delivery. Assessment & Plan Assessment/Plan (1) 41 weeks gestation of :
[2021-09-13] MEDS: Lactated Ringers 1,000 ML 50 ML IV (07:40)
[2021-09-13 07:55] LABS: Absolute Lymphocyte Count 2.38 X10^3/uL (0.83-4.51); Absolute Neutrophil Count 7.8 X10^3/uL (2.0-7.7); Basophil# 0.06 X10^3/uL; Basophil% 0.5 % (0-1); Eosinophil# 0.09 X10^3/uL; Eosinophils% 0.8 % (0-5); Hematocrit 35.3 % (37-47); Hemoglobin 11.9 g/dL (12.0-15.0); Lymphocyte # 2.38 X10^3/ul (0.83-4.51); Lymphocyte % 20.5 % (19-41); Mean Corp Hgb Conc 33.7 g/dL (32-36); Mean Corpuscular Hgb 30.7 pg (27.0-32.0); Monocyte% 9.5 % (0-10); NRBC Flagged by Analyzer 0 % (0-5); Neutrophil # 7.82 X10^3/uL (2.7-7.7); Neutrophil % 67.3 % (47-70); Platelet Count 231 K/mm3 (150-450); RBC Distribution Width CV 13.5 % (11.6-14.6); RBC Distribution Width SD 45.2 fl (35.1-43.9); Red Blood Count 3.88 M/mm3 (4.2-5.4); White Blood Count 11.6 K/mm3 (4.4-11.0)
[2021-09-13] MEDS: miSOPROStol 25 MCG TABLET VAGINAL (08:01)
[2021-09-13] MEDS: LACTATED RINGERS 500 ML 999 ML IV ×2 (12:32→15:58)
[2021-09-13] MEDS: Oxytocin 30 units/NS 500 ml 30 UNITS/500 ML IV.SOLN IV (13:21)
[2021-09-13] MEDS: fentaNYL-bupivacaine (epidural) 100 ML BAG EPIDURAL (17:05)
--- NOTE | 2021-09-13 17:37 | PN.OBGYN_ITS ---
Subjective Subjective Comfortable with epidural Objective Data Objective Data Vital Signs: Vital Signs Temp Pulse BP Pulse Ox 97.8 F 123 H 134/81 H 100 09/13/21 15:51 09/13/21 17:34 09/13/21 17:34 09/13/21 17:33 Weight: 89.2 kg Body Mass Index (BMI) 29.9 Intake & Output: Intake and Output for Last 24 Hours 09/11/21 09/12/21 09/13/21 23:59 23:59 23:59 Intake Total 1397.66 / 1397.66 Output Total 300 / 300 Balance 1097.66 / 1097.66 Lab / Micro Data Result Diagrams: 09/13/21 07:40 Labs: Laboratory Results - last 24 hr 09/13/21 07:40: WBC 11.6 H, RBC 3.88 L, Hgb 11.9 L, Hct 35.3 L, MCV 91.0, MCH 30.7, MCHC 33.7, RDW Std Deviation 45.2 H, RDW Coeff of Sebastian 13.5, Plt Count 231, MPV 10.0, Immature Gran % (Auto) 1.400 H, Neut % (Auto) 67.3, Lymph % (Auto) 20.5, [place] % (Auto) 9.5, Eos % (Auto) 0.8, Baso % (Auto) 0.5, Absolute Neuts (auto) 7.8 H, Absolute Lymphs (auto) 2.38, Nucleated RBC % 0 09/13/21 07:40: Blood Type O POSITIVE, Antibody Screen NEGATIVE Micro: Microbiology 09/13/21 07:45 Nasal Secretion SARS-CoV-2 Antigen (Rapid) - Final Physical Exam Narrative GEN - NAD, AAO x 3 FHR 135, moderate variability, +a ccelerations, no decelerations TOCO 4/10 min 6/70/-3, moderate and midposition Assessment & Plan (1) 41 weeks gestation of : PLAN: Amniotomy performed with clear to blood tinged fluid Bleeding present without hemorrhage and patient with tachycardia, feels well Check orthostatics and will send CBC if orthostatic Cat I FHR
[2021-09-13] MEDS: Oxytocin 30 units/NS 500 ml 30 UNITS/500 ML IV.SOLN 334 UNITS IV (19:28)
--- NOTE | 2021-09-13 19:43 | OP.PCM_ITS ---
Vaginal Delivery Findings Description of Procedure: Normal spontaneous vaginal delivery of a viable female , vertex ERMIAS. Head and shoulders delivered with ease. Cord cut and clamped. Baby handed off to patient. Placenta delivered via cord traction and fundal massage. Second- degree midline perineal laceration noted and repaired in typical fashion. EBL 400 cc Apgars 9/9. History of hemorrhage prophylactic Hemabate 0.25 mg IM and Cytotec 1000 mcg MO given
[2021-09-13] MEDS: Carboprost Tromethamine 250 MCG/ML Ampul IM (19:50)
[2021-09-13] MEDS: Ondansetron 4 MG/2 ML Vial IV (20:13)
[2021-09-13] MEDS: Loperamide 2 MG Capsule PO (21:23)
[2021-09-13] MEDS: miSOPROStol 200 MCG Tablet 1000 MCG RC (21:28)
[2021-09-13] MEDS: Ibuprofen 600 MG Tablet PO (22:19)
[2021-09-14 00:10] VITALS: BP 110/73; PULSE 84; RESP 16; TEMP 36.8
[2021-09-14] MEDS: Acetaminophen 500 MG Tablet 1000 MG PO (00:59)
[2021-09-14 04:01] VITALS: BP 96/56; PULSE 83; RESP 16; TEMP 36.9; O2SAT 94
[2021-09-14 09:02] VITALS: BP 111/67; PULSE 102; RESP 16; TEMP 36.5; O2SAT 97
--- NOTE | 2021-09-14 09:45 | CASEMGMT ---
Social Work Brief assessment, labor and delivery unite Date/Time: Referral: 09/14/21, 9:19am Referred by: Dr. Werner Dooley MD Reason for Referral: anxiety and panic during labor Date/Time of intervention: 09/14/21, 9:25am Informant: MOB, FOB History: Referral received as MOB became anxious during delivery w/heart rate increasing. As per RN, MOB had excessive bleeding in prior delivery. SW spoke w/MOB and FOB at bedside, in regard to anxiety yesterday. As per MOB and FOB, this is their second child, Cha. When Faith was born, as per MOB, she had excessive bleeding. She was thinking about this yesterday when delivering Cha and explains had a moment of anxiety thinking about her first delivery. She states that it was momentary and passed, she states she is fine now. Financial Status/ supplies: They report no concerns. They have what they need for the baby including car seat, crib, bassinet, all other needed supplies. MOB plans to breast feed. Caregivers/Support: MOB reports her mother to be supportive Programs/Agencies/Legal/Children's Services: None involved. Mental Health: MOB reports no history of mental health diagnoses, states has never been in counseling or in therapy. She states she's had some anxiety but does not believe it to be anything out of what would be considered normal. FOB reports no mental health concerns. Depression and Anxiety/Shaken Baby/Safe Sleeping/Help Me Grow/[facility] Resources/Mental Health resources: SW gave MOB and FOB resources on all of the above and reviewed the resources. SW reviewed in particular information on depression and anxiety and warning signs. SW also explained that if MOB experiencing symptoms to speak w/her physician about it. List of mental health resources also provided. Assessment: MOB and FOB appropriate, answered all questions. They have no concerns for homegoing. No further social services aide needs anticipated at this time. Plan: Baby to go home w/MOB and FOB at discharge. JESSICA Schmidt
--- NOTE | 2021-09-14 09:46 | PCM.PN.OB ---
Subjective Subjective No overnight complaints Objective Data Objective Data Vital Signs: Vital Signs Temp Pulse Resp BP Pulse Ox 97.7 F L 102 H 16 111/67 97 09/14/21 09:02 09/14/21 09:02 09/14/21 09:02 09/14/21 09:02 09/14/21 09:02 Oxygen Delivery Method Room Air Weight: 196 lb 10.437 oz Body Mass Index (BMI) 29.9 Intake & Output: Intake and Output for Last 24 Hours 09/12/21 09/13/21 09/14/21 23:59 23:59 23:59 Intake Total 2500.83 / 2500.83 Output Total 650 / 650 1000 / 1000 Balance 1850.83 / 1850.83 -1000 / -1000 Lab / Micro Data Result Diagrams: 09/13/21 07:40 Labs: Laboratory Results - last 24 hr 09/13/21 07:40: Blood Type O POSITIVE, Antibody Screen NEGATIVE Micro: Microbiology 09/13/21 07:45 Nasal Secretion SARS-CoV-2 Antigen (Rapid) - Final Physical Exam Const alert, oriented x3, no apparent distress, average body habitus, healthy appearing and well nourished HEENT normocephalic Eyes PERRL Neck full ROM Resp normal respiratory effort, no retractions and no use of accessory muscles GI GI Narrative: Soft, nontender, uterus firm and below umbilicus Psych mental status grossly normal, affect normal, speech normal and activity/motor behavior normal Assessment & Plan (1) Vaginal delivery: PLAN: day 1. Breast-feeding and supplementing formula. Pain well controlled. Likely discharge home tomorrow
[2021-09-14 11:56] VITALS: BP 101/51; PULSE 91; RESP 16; TEMP 36.7; O2SAT 96
[2021-09-14 15:37] VITALS: BP 114/71; PULSE 88; RESP 16; TEMP 36.6; O2SAT 98
[2021-09-14 21:49] VITALS: BP 111/68; PULSE 91; RESP 16; TEMP 36.9; O2SAT 97
[2021-09-15 03:13] VITALS: BP 105/70; PULSE 87; RESP 16; TEMP 37.1; O2SAT 96
[2021-09-15 07:59] VITALS: BP 112/73; PULSE 104; RESP 16; TEMP 36.5; O2SAT 95
--- NOTE | 2021-09-15 08:36 | DS.PCM_ITS ---
Discharge Summary Date of Admission: 09/13/21 Date of Discharge: 09/15/21 Summary: Patient arrived on 09/13/2021 for induction of labor at term. Subsequently delivered on 09/13/2021 vaginally. Routine recovery. Discharge home on 09/15/2021 Meaningful Use Info Meaningful Use Diagnoses (Choose all that apply): None applicable Discharge Plan Admission Admit Date/Time: 09/13/21 06:58 Primary Reason for Your Visit: Induction of labor Attending Provider: Werner Dooley Primary Care Provider: Smita Tamayo Instructions Additional Instructions / Restrictions: Regular diet. Weightbearing as tolerated. Okay to shower. No intercourse for 4 to 6 weeks. Call if fevers, chills, chest pain, shortness of breath. Follow- up 2-week telehealth visit, 4 to 6-week visit Discharge Orders/Prescriptions Prescriptions: No Action ferrous sulfate [Iron (ferrous sulfate)] 325 MG tablet 325 mg PO BID Vitamin 1 EACH tablet 1 ea PO DAILY Referrals / Follow Up: Smita Tamayo MD [Primary Care Provider] - Disposition Disposition (needs filled in before D/C Order can be placed): Home, Self Care
--- NOTE | 2021-09-15 08:37 | PCM.PN.OB ---
Subjective Subjective No overnight complaints Objective Data Objective Data Vital Signs: Vital Signs Temp Pulse Resp BP Pulse Ox 97.7 F L 104 H 16 112/73 95 09/15/21 07:59 09/15/21 07:59 09/15/21 07:59 09/15/21 07:59 09/15/21 07:59 Oxygen Delivery Method Room Air Weight: 196 lb 10.437 oz Body Mass Index (BMI) 29.9 Intake & Output: Intake and Output for Last 24 Hours 09/13/21 09/14/21 09/15/21 23:59 23:59 23:59 Intake Total 2500.83 / 2500.83 Output Total 650 / 650 1000 / 1000 Balance 1850.83 / 1850.83 -1000 / -1000 Lab / Micro Data Result Diagrams: 09/13/21 07:40 Micro: Microbiology 09/13/21 07:45 Nasal Secretion SARS-CoV-2 Antigen (Rapid) - Final Physical Exam Const alert, oriented x3, no apparent distress, average body habitus, healthy appearing and well nourished HEENT normocephalic Eyes PERRL Resp normal respiratory effort, no retractions and no use of accessory muscles GI GI Narrative: Abdomen soft, nontender, uterus firm and below umbilicus Extremity normal to inspection, full ROM and no clubbing, cyanosis or edema Neuro moves all extremities Psych mental status grossly normal, affect normal, speech normal and activity/motor behavior normal Assessment & Plan (1) Vaginal delivery: PLAN: day 2. Breast-feeding. Pain well controlled. Okay to discharge home
== END 2021-09-15 09:45 | disposition home or self-care (01) | DRG 807 ==
PROVIDERS: Obstetrics & Gynecology; Admitting Provider Obstetrics & Gynecology; PCP Family Medicine; Referring Provider Obstetrics & Gynecology; Visit Provider Obstetrics & Gynecology
DX: O48.0 Post-term pregnancy (principal); Z37.0 Single live birth; O70.1 Second degree perineal laceration during delivery; Z56.6 Other physical and mental strain related to work; Z3A.41 41 weeks gestation of pregnancy
CPT/HCPCS: 59025; 59050; 85025; 86850; 86900; 86901; 87426; 99218; J7120; G0378; J2405

== ENCOUNTER → 2021-10-15 | Outpatient (CLI) | payer OTHER, SELFPAY ==
[2021-10-18 22:28] LABS: HPV APTIMA, High Risk Negative (Negative)
== END | disposition home or self-care (01) ==
LOC: LABSPEC 14:57
PROVIDERS: PCP Family Medicine; Visit Provider Obstetrics & Gynecology
DX: Z12.4 Encounter for screening for malignant neoplasm of cervix (principal)
CPT/HCPCS: 87624; 88175; G0145

== ENCOUNTER → 2021-12-23 | Outpatient (CLI) | payer OTHER, SELFPAY ==
[2021-12-23 17:44] LABS: Absolute Lymphocyte Count 2.14 X10^3/uL (0.83-4.51); Absolute Neutrophil Count 4.2 X10^3/uL (2.0-7.7); Basophil# 0.06 X10^3/uL; Basophil% 0.8 % (0-1); Eosinophil# 0.11 X10^3/uL; Eosinophils% 1.5 % (0-5); Hemoglobin 10.8 g/dL (12.0-15.0); Lymphocyte # 2.14 X10^3/ul (0.83-4.51); Lymphocyte % 29.5 % (19-41); Mean Corpuscular Hgb 24.9 pg (27.0-32.0); Mean Corpuscular Volume 83.1 fL (81-99); Mean Platelet Vol. 11.4 fl (6.2-12.0); Monocyte# 0.69 X10^3/uL; Monocyte% 9.5 % (0-10); NRBC Flagged by Analyzer 0 % (0-5); Neutrophil # 4.23 X10^3/uL (2.7-7.7); Neutrophil % 58.4 % (47-70); Platelet Count 322 K/mm3 (150-450); RBC Distribution Width CV 14.8 % (11.6-14.6); RBC Distribution Width SD 44.8 fl (35.1-43.9); Red Blood Count 4.33 M/mm3 (4.2-5.4); White Blood Count 7.3 K/mm3 (4.4-11.0)
[2021-12-23 18:02] LABS: Iron 34 ug/dL (50-170)
== END | disposition home or self-care (01) ==
LOC: MFPLAB 15:54
PROVIDERS: PCP Family Medicine; Referring Provider Family Medicine; Visit Provider Family Medicine
DX: D64.9 Anemia, unspecified (principal)
CPT/HCPCS: 36415; 83540; 85025

== ENCOUNTER → 2022-07-01 | Outpatient (CLI) | payer OTHER, SELFPAY ==
[2022-07-01 17:50] LABS: Absolute Lymphocyte Count 1.92 X10^3/uL (0.83-4.51); Absolute Neutrophil Count 4.6 X10^3/uL (2.0-7.7); Basophil# 0.08 X10^3/uL; Basophil% 1.1 % (0-1); Eosinophil# 0.12 X10^3/uL; Eosinophils% 1.6 % (0-5); Hematocrit 39.1 % (37-47); Hemoglobin 12.2 g/dL (12.0-15.0); Lymphocyte # 1.92 X10^3/ul (0.83-4.51); Lymphocyte % 25.9 % (19-41); Mean Corp Hgb Conc 31.2 g/dL (32-36); Mean Corpuscular Hgb 26.1 pg (27.0-32.0); Mean Corpuscular Volume 83.7 fL (81-99); Mean Platelet Vol. 11.7 fl (6.2-12.0); Monocyte% 9.5 % (0-10); NRBC Flagged by Analyzer 0 % (0-5); Neutrophil # 4.55 X10^3/uL (2.7-7.7); Neutrophil % 61.5 % (47-70); Platelet Count 268 K/mm3 (150-450); RBC Distribution Width CV 14.5 % (11.6-14.6); RBC Distribution Width SD 43.8 fl (35.1-43.9); Red Blood Count 4.67 M/mm3 (4.2-5.4); White Blood Count 7.4 K/mm3 (4.4-11.0)
[2022-07-01 18:27] LABS: AST(SGOT) 25 U/L (15-37); Alanine Aminotransfer ALT/SGPT 24 U/L (13-56); Alkaline Phosphatase 92 U/L (45-117); Anion Gap 6 (5-15); BUN 10 mg/dL (7-18); BUN/Creat Ratio 10.1 RATIO (10-20); Calcium,Total 9.5 mg/dL (8.5-10.1); Chloride 105 mmol/L (98-107); Creatinine, Serum 0.99 mg/dL (0.55-1.02); EST Glomerular Filtration Rate 69 mL/min (>60); Est Glom Filt Rate - Afr Amer 83 mL/min (>60); Globulin 4.2 g/dL (2.2-4.2); Glucose 81 mg/dL (74-106); Magnesium 2.2 mg/dL (1.6-2.6); Potassium 4.1 mmol/L (3.5-5.1); Protein, Total 8.2 g/dL (6.4-8.2); Sodium Level 137 mmol/L (136-145)
[2022-07-01 18:35] LABS: Vitamin B12 346 pg/mL (211-911); Vitamin D,25 Hydroxy 27.7 ng/mL
[2022-07-05 14:15] LABS: VITAMIN B6 4.8 ug/L (3.4-65.2); Vitamin B1, Thiamine 98.1 nmol/L (66.5-200.0)
== END | disposition home or self-care (01) ==
LOC: MFPLAB 14:16
PROVIDERS: PCP Family Medicine; Referring Provider Family Medicine; Visit Provider Family Medicine
DX: D64.9 Anemia, unspecified (principal); R25.2 Cramp and spasm
CPT/HCPCS: 36415; 80053; 82306; 82607; 83735; 84207; 84425; 85025

== ENCOUNTER 2022-07-08 15:54 | Outpatient (RCR) | payer OTHER, SELFPAY | END 2022-07-08 19:00 | disposition home or self-care (01) | LOC: PT 15:54 | PROVIDERS: PCP Family Medicine; Referring Provider Family Medicine; Visit Provider Family Medicine | DX: M77.8 Other enthesopathies, not elsewhere classified (principal) ==

== ENCOUNTER 2022-07-11 16:54 | Emergency (ER) | payer OTHER, SELFPAY ==
[2022-07-11 16:55] VITALS: BP 122/95; PULSE 98; RESP 16; TEMP 36.3; O2SAT 99; BMI 25.7
--- NOTE | 2022-07-11 18:11 | EDS_ITS ---
HPI History of Present Illness Chief Complaint: Abd Pain Narrative Narrative: 31-year-old female here with sudden onset of severe lower abdominal pain. States the pain came all of a sudden and has since resolved. States it reminds her of her prior ruptured ovarian cyst. She denies vomiting or fever. Denies history of abdominal surgery. She denies any urinary complaints. Denies any vaginal bleeding or discharge. PFSH PFS Medical History (Updated 07/11/22 @ 20:[address] Leonidas Barraza, DO) Anemia affecting Family history of hearing loss at age younger than 7 years Fibrous breast lumps Home Medications NK 07/11/22 [History Last Taken Unknown] Allergy/AdvReac Type Severity Reaction Status Date / Time No Known Allergies Allergy Verified 07/11/22 17:43 Family History (Updated 09/13/21 @ 08:17 by Ann Mcclellan) Grandfather Heart disease Grandmother Heart disease Grandfather Heart disease Grandmother Cancer Father Hearing loss Surgical History History of surgery Social History Smoking Status: Never smoker ROS ROS ED ROS Narrative Constitutional: Denies fever HEENT: Denies sore throat Neck: Denies neck pain Cardiovascular: Denies chest pain, syncope Respiratory: Denies shortness of breath GI: Endorses abdominal pain : Denies changes in urinary habits Musculoskeletal: Denies muscle or joint pain Neurologic: Denies numbness weakness or loss of sensation Skin denies rash EXAM Physical Exam Narrative Exam Narrative: Nursing triage notes reviewed, Vital signs reviewed Constitutional: please see mdm HENT: MMM Eyes: Pupils equal round and reactive to light, Extraocular muscles intact Neck: No stridor, no JVD, full neck ROM Lungs: Clear to auscultation, No wheezing or rales. No increased work of breathing, no conversational dyspnea, no accessory muscle use, no nasal flaring. No respiratory distress noted Heart: Regular rate and rhythm, No murmurs, No rubs and No gallops, 2+ distal pulses (radial, femoral, posterior tibial) in all extremities Abdomen: Soft, there is no tenderness, rigidity, rebound or guarding, no obvious peritoneal signs, no palpable pulsatile abdominal masses, no auscultated abdominal bruit : No CVAT Extremities: No edema Neuro: No focal neurological deficits, cranial nerves II through XII intact, 5/5 strength in all extremities. Intact sensation to light touch in all extremities, 2+ reflexes bilateral patella dens. Normal gait. No ataxia. Skin: No rash or lesions noted Const Vital Signs: 07/11/22 16:55 07/11/22 19:07 Temperature 97.3 F L Temperature Source Temporal Pulse Rate 98 Respiratory Rate 16 16 Blood Pressure 122/95 H Blood Pressure Mean 104 Pulse Ox 99 Oxygen Delivery Method Room Air Room Air MDM MDM MDM Narrative Medical decision making narrative: Chief Complaint: Abdominal pain External records reviewed: Abdominal ultrasound from 2013 shows no acute cholecystitis I considered the following differential diagnosis: Ectopic , pancreatitis, UTI, pyelonephritis, nephrolithiasis, acute surgical abdomen of the abdomen Patient abdominal exam is benign not consistent with acute surgical process of the abdomen as such I did obtain a CT scan abdomen pelvis. Given patient's history of ovarian cyst rupture did perform a pelvic ultrasound. Patient is not ruling out ectopic . Remainder patient's labs showed no evidence of systemic inflammation, severe anemia, hepatobiliary pathology, acute kidney injury, UTI or . Patient's ultrasound did not reveal evidence of ovarian torsion or ruptured cyst. Patient remained pain-free and repeat abdominal exam remained benign she is appropriate outpatient evaluation by TOOL REPAIR TECHNICIAN Factors affecting care: None Social determinants of health: Poor health literacy History obtained from others: Shared decision making: I will have a discussion with the patient and or visitors regarding risk/benefits of further testing or admission. They will be made aware of of the risk/benefits inherent in this decision they will be given the opportunity to voice understanding. Consults: None Lab Data Attestation: I reviewed the patient's lab results. Lab results narrative: CBC with no leukocytosis, mild anemia, thrombocytopenia BMP with mild hyponatremia, no significant [place] abnormalities, no anion gap, no acute kidney injury, LFTs without evidence of hepatobiliary pathology Lipase is wnl indicating no pancreatic inflammation. Urine without evidence of infection to suggest pyelonephritis Labs: Laboratory Results - last 24 hr 07/11/22 07/11/22 07/11/22 17:55 18:00 18:00 WBC 9.9 RBC 4.29 Hgb 11.5 L Hct 35.0 L MCV 81.6 MCH 26.8 L MCHC 32.9 RDW Std Deviation 42.9 RDW Coeff of [place] 14.5 Plt Count 246 MPV 10.9 Immature Gran % (Auto) 0.300 Neut % (Auto) 68.0 Lymph % (Auto) 22.7 [place] % (Auto) 7.5 Eos % (Auto) 0.8 Baso % (Auto) 0.7 Absolute Neuts (auto) 6.8 Absolute Lymphs (auto) 2.25 Nucleated RBC % 0 Sodium 135 L Potassium 4.1 Chloride 105 Carbon Dioxide 26.0 Anion Gap 4 L BUN 17 Creatinine 1.08 H Estim Creat Clear Calc 75.44 Est GFR (MDRD) Af Amer 75 Est GFR (MDRD) Non-Af 62 BUN/Creatinine Ratio 15.7 Glucose 91 Calcium 9.0 Total Bilirubin 0.20 Direct Bilirubin 0.08 AST 18 ALT 20 Alkaline Phosphatase 93 Total Protein 7.7 Albumin 3.7 Globulin 4.0 Lipase 36 Urine Color Yellow Urine Clarity Clear Urine pH 6.0 Ur Specific [place] 1.015 Urine Protein Negative Urine Glucose (UA) Normal Urine Ketones Negative Urine Occult Blood Negative Urine Nitrite Negative Urine Bilirubin Negative Urine Urobilinogen Normal Ur Leukocyte Esterase Negative Urine RBC 0 SEEN Urine WBC 0 SEEN Ur Squamous Epith Cells 0 SEEN Urine Bacteria 0 SEEN Urine Mucus 0 SEEN Urine Test Negative Radiography Diagnostic Testing: Clinical Impression(s) from Imaging Studies Transvaginal US 07/11/22 18:45 IMPRESSION: Cystic structures in the right ovary, a simple cyst and a cyst that has debris compatible with complex cyst. There is flow within both ovaries. There is moderate free fluid in the cul-de-sac. Electronically Signed: Leoncio Jaffe MD at 19:48 EDT , Discharge Plan Triage Chief Complaint: Abd Pain ED Provider: Leonidas Barraza Dx/Rx/DC Orders Clinical Impression: Ovarian cyst Instructions: ED Ovarian Cyst Prescriptions: No Action NK Primary Care Provider: Smita Tamayo Referrals: Ann Denise CNM [Med Staff - Adv Practice Prof] - Activity Restrictions/Additional Instructions: Thank you for trusting us with your care today! Please take Tylenol (2 pills, 650 mg), ibuprofen (2 pills, 400 mg) every 6 hours as needed for pain and fever control. Please return to the emergency department if your symptoms change or worsen. Please follow with your primary care physician for further outpatient evaluation and management. Disposition Disposition: Home, Self Care
[2022-07-11] MEDS: 0.9% Normal Saline 1,000 ML 1000 ML IV (18:24)
[2022-07-11 18:27] LABS: Bacteria 0 SEEN /hpf (None Seen); Mucous, Urine 0 SEEN /hpf (<or=2+); Red Blood Cells-Urine 0 SEEN /hpf (0-5); Squamous Epithelial Cells - UA 0 SEEN /hpf (5-10); White Blood Cells 0 SEEN /hpf (0-5)
[2022-07-11 18:30] LABS: Absolute Lymphocyte Count 2.25 X10^3/uL (0.83-4.51); Absolute Neutrophil Count 6.8 X10^3/uL (2.0-7.7); Basophil# 0.07 X10^3/uL; Basophil% 0.7 % (0-1); Eosinophil# 0.08 X10^3/uL; Eosinophils% 0.8 % (0-5); Hemoglobin 11.5 g/dL (12.0-15.0); Lymphocyte # 2.25 X10^3/ul (0.83-4.51); Lymphocyte % 22.7 % (19-41); Mean Corp Hgb Conc 32.9 g/dL (32-36); Mean Corpuscular Hgb 26.8 pg (27.0-32.0); Mean Corpuscular Volume 81.6 fL (81-99); Mean Platelet Vol. 10.9 fl (6.2-12.0); Monocyte# 0.74 X10^3/uL; Monocyte% 7.5 % (0-10); NRBC Flagged by Analyzer 0 % (0-5); Neutrophil # 6.76 X10^3/uL (2.7-7.7); Platelet Count 246 K/mm3 (150-450); RBC Distribution Width CV 14.5 % (11.6-14.6); RBC Distribution Width SD 42.9 fl (35.1-43.9); Red Blood Count 4.29 M/mm3 (4.2-5.4); White Blood Count 9.9 K/mm3 (4.4-11.0)
[2022-07-11 18:33] LABS: Color, Urine Yellow (Yellow); Glucose, Dipstick Normal (Normal); Ketone-Dipstick Negative (Negative); Leukocyte Esterase-Dipstick Negative /ul (Negative); Nitrite-Dipstick Negative (Negative); Occult Blood-Urine Negative /ul (Negative); Protein-Dipstick Negative (Negative); Specific Gravity, Urine 1.015 (1.002-1.030); Urine Bilirubin Dipstick Negative (Negative); Urine Clarity Clear (Clear); Urine Urobilinogen Normal (Normal)
[2022-07-11 18:44] LABS: Internal QC Validated? YES +Cl - CLEAR BKGD; Pregnancy, Urine Negative Negative
--- NOTE | 2022-07-11 18:45 | US_ITS ---
EXAM: US PELVIS TRANSVAGINAL CLINICAL INDICATION: Lower abdominal pain, rule out ovarian cyst rupture TECHNIQUE: Transvaginal pelvic ultrasound was performed with grayscale and color Doppler imaging. Transvaginal imaging was used for better evaluation of the endometrium and adnexa. This report was created using [employer] report [email or web address] technology. COMPARISON: None. FINDINGS: UTERUS/CERVIX: Uterus measures 8.4 x 4.0 x 5.3 cm. The endometrium measures 1.2 cm. Anteverted. There is no uterine mass. RIGHT OVARY: The right ovary measures 7.3 x 4.0 x 4.9 cm. There is a complex cystic structure that measures 2.6 x 1.6 x 1.9 cm. There is a simple cystic structure that measures 3.1 x 1.9 x 2.6 cm. Blood flow is present in the right ovary. LEFT OVARY: The left ovary measures 4.5 x 2.7 x 2.4 cm. There are multiple follicles present. Blood flow is present in the left ovary. FREE FLUID: There is free fluid in the cul-de-sac. BLADDER: Empty bladder which cannot be evaluated with this probe. US/Transvaginal Non- IMPRESSION: Cystic structures in the right ovary, a simple cyst and a cyst that has debris compatible with complex cyst. There is flow within both ovaries. There is moderate free fluid in the cul-de-sac. Electronically Signed: Leoncio Jaffe MD at 19:48 EDT ,
[2022-07-11 18:46] LABS: AST(SGOT) 18 U/L (15-37); Alanine Aminotransfer ALT/SGPT 20 U/L (13-56); Albumin, Serum 3.7 g/dL (3.2-5.0); Alkaline Phosphatase 93 U/L (45-117); Anion Gap 4 (5-15); BUN 17 mg/dL (7-18); BUN/Creat Ratio 15.7 RATIO (10-20); Bilirubin, Direct 0.08 mg/dL (0.00-0.30); Chloride 105 mmol/L (98-107); Creatinine, Serum 1.08 mg/dL (0.55-1.02); EST Glomerular Filtration Rate 62 mL/min (>60); Est Glom Filt Rate - Afr Amer 75 mL/min (>60); Estimated Creatinine Clearance 75.44 ml/min; Glucose 91 mg/dL (74-106); Lipase 36 U/L (13-75); Potassium 4.1 mmol/L (3.5-5.1); Protein, Total 7.7 g/dL (6.4-8.2); Sodium Level 135 mmol/L (136-145)
[2022-07-11 19:07] VITALS: RESP 16
[2022-07-11 20:25] VITALS: RESP 17
== END 2022-07-11 20:26 | disposition home or self-care (01) ==
PROVIDERS: Emergency Provider Emergency Medicine; PCP Family Medicine; Visit Provider Emergency Medicine
DX: R10.9 Unspecified abdominal pain (principal); N83.209 Unspecified ovarian cyst, unspecified side
CPT/HCPCS: 76830; 80048; 80076; 81001; 81025; 83690; 85025; 99283; J7030; A4216; J2405

== ENCOUNTER → 2023-01-20 | Outpatient (CLI) | payer OTHER, SELFPAY ==
[2023-01-20 18:23] LABS: Anion Gap 4 (5-15); BUN 13 mg/dL (7-18); BUN/Creat Ratio 14.5 RATIO (10-20); Calcium,Total 9.6 mg/dL (8.5-10.1); Chloride 105 mmol/L (98-107); Cholesterol 142 mg/dL (200); EST Glomerular Filtration Rate 77 mL/min (>60); Est Glom Filt Rate - Afr Amer 93 mL/min (>60); Glucose 94 mg/dL (74-106); High Density Lipoprotein 65 mg/dL; Potassium 4.4 mmol/L (3.5-5.1); Sodium Level 136 mmol/L (136-145); Triglycerides 52 mg/dL; Very Low Density Lipoprotein 10 mg/dL (5-40)
== END | disposition home or self-care (01) ==
LOC: MFPLAB 16:35
PROVIDERS: PCP Family Medicine; Visit Provider Family Medicine
DX: R03.0 Elevated blood-pressure reading, without diagnosis of hypertension (principal)
CPT/HCPCS: 36415; 80048; 80061

== ENCOUNTER → 2023-05-19 | Outpatient (CLI) | payer OTHER, SELFPAY ==
--- OUTSIDE RECORDS SUMMARY | 2023-05-19 20:48 | XMS RPT_ITS | CCD ---
Author Name Unknown Address [address] [place] [address] Organization [facility] Care Team Providers Care Wedger Name Role Phone Unavailable Primary Care Provider UnavailSmita Carrillo Primary Care Provider SMITA HUNT Primary Care Unavailable SMITA HUNT Primary Care Unavailable SHASHANK QUICK Attending Unavailable SMITA HUNT Referring Unavailable SELF, SELF Referring Unavailable SHASHANK QUICK Attending Unavailable [facility] OFFICE PCP, [facility] Referring Unavailable SHASHANK QUICK Attending Unavailable [facility] PCP, [facility] Referring Unavailable SHASHANK QUCIK Attending Unavailable Medications Current Medications Medication Drug Class(es) Dates Sig (Normalized) Sig (Original) ALPHA LIPOIC ACID PO (1 source) ALPHA LIPOIC ACI D PO Take by mouth. Active cetirizine hydrochloride 10 mg oral tablet (1 source) Histamine-1 Receptor Antagonist Start: 01-11-2023 End: 02-10-2023 take 1 tablet by mouth once daily cetirizine (ZYRTEC) 10 mg tablet Take 1 tablet by mouth once daily. 30 tablet 0 01/11/2023 02/10/2023 Active Completed/Discontinued Medications Medication Drug Class(es) Dates Sig (Normalized) Sig (Original) cholecalciferol 0.05 mg oral tablet (2 sources) Vitamin D End: 05-15-2023 take 1 tablet by mouth once daily cholecalciferol 50 MCG (2000 UNIT) tablet Take 1 tablet by mouth daily. 05/15/2023 Discontinued ferrous sulfate (2 sources) End: 05-15-2023 Ferrous Sulfate (IRON PO) Take by mouth every other day. 05/15/2023 Discontinued Problems Active Problems Problem Classification Problem Date Documented Da te Episodic/Chronic Other nervous system disorders (2 sources) Paresthesia; Translations: [Paresthesia of skin] 01-08-2023 Episodic Otitis media and related conditions (1 source) Dysfunction of right eustachian tube; Translations: [Unspecified Eustachian tube disorder, right ear] 01-11-2023 Episodic Past or Other Problems Problem Classification Problem Date Documented Da te Episodic/Chronic Other nervous system disorders (3 sources) Muscle fasciculation; Translations: [Fasciculation] Onset: 01-08-2023 01-08-2023 Episodic Other nervous system disorders (1 source) Fasciculation; Translations: [Fasciculation] Onset: 01-08-2023 Episodic Other nervous system disorders (2 sources) Paresthesia of skin; Translations: [Paresthesia of skin] Onset: 01-08-2023 Episodic Results Test Name Value Interpretation Reference Range Facil ity Vital Signs Date Time Vital Sign Value Performing Clinician Faci lity 01-11-2023 15:07-0400 Body temperature 97.9 [degF] Yosi Yost RADIOISOTOPE TECHNOLOGIST.VALVE REPAIRER RECLAMATION Work Phone: [facility] 01-11-2023 15:07-0400 Body weight 73.66 kg Yosi Yost RADIOISOTOPE TECHNOLOGIST.VALVE REPAIRER RECLAMATION Work Phone: [facility] 01-11-2023 15:07-0400 Diastolic blood pressure 99 mm[Hg] Yosi Yost RADIOISOTOPE TECHNOLOGIST.VALVE REPAIRER RECLAMATION Work Phone: [facility] 01-11-2023 15:07-0400 Heart rate 92 /min Yosi Yost RADIOISOTOPE TECHNOLOGIST.VALVE REPAIRER RECLAMATION Work Phone: [facility] 01-11-2023 15:07-0400 Respiratory rate 18 /min Yosi Yost RADIOISOTOPE TECHNOLOGIST.VALVE REPAIRER RECLAMATION Work Phone: [facility] 01-11-2023 15:07-0400 SaO2% (BldA) [Mass fraction] 100 % Yosi Yost RADIOISOTOPE TECHNOLOGIST.VALVE REPAIRER RECLAMATION Work Phone: [facility] 01-11-2023 15:07-0400 Systolic blood pressure 137 mm[Hg] Yosi Yost RADIOISOTOPE TECHNOLOGIST.VALVE REPAIRER RECLAMATION Work Phone: [facility] Encounters Encounter Date Encounter Type Care Provider Facility Start: 05-15-2023 ambulatory SELF SELF Facility:[facility] Start: 05-15-2023 End: 05-15-2023 Office outpatient visit 25 minutes Shashank Quick DO Work Phone: Neurology [facility] Procedures Date Procedure Procedure Detail Performing Clinician Start: 01-08-2023 GENERAL PROCEDURE Shashank Quick DO Work Phone: Plan of Treatment Date Care Activity Detail Author Start: 05-15-2023 End: 05-15-2023 Patient encounter procedure 05/15/2023 10:30 AM EST Office Visit Neurology [facility] [address] [address] Shashank Quick DO [address] [facility] [address] [place] [address] [facility] Start: 01-08-2023 End: 01-09-2024 ALDOLASE [facility] Payers Date Payer Category Payer Unknown [id number] 2013 Unknown [id number] 1989 Unknown [id number] 2.. [id number] 1989 Unknown [id number] 1989 Unknown [id number] 2. [id number] 1989 Unknown [id number] 2. [id number] 1989 Unknown [id number] 2. [id number] 1989 Unknown [id number] 2. [id number] Social History Date Type Detail Facility [facility] consumption unknown [facility] Start: 08-28-2022 End: 05-15-2023 History of Social function [facility] Start: 08-28-2022 End: 05-15-2023 Tobacco use panel [facility] Start: 1990 Sex Assigned At Not on file [facility] Start: 01-11-2023 End: 05-15-2023 Tobacco smoking status NHIS Never smoked tobacco [facility] Start: 01-11-2023 End: 05-15-2023 Tobacco use and exposure Smokeless tobacco non-user [facility] Start: 01-11-2023 Alcohol intake Not Asked [facility] National Score (1-100), lower number is lower risk Not on file [facility] Start: 05-15-2023 Alcoholic beverage intake Ex-drinker (finding) [facility] Start: 05-15-2023 Alcohol Comment Wine a few times a y ear [facility] History of Present illness Narrative 05-15-2023 Shashank Quick, - 05/15/2023 10:30 AM EST Note Date & Type Note Facility 05-15-2023 History of Present illness Narrative Chief Complaint: Follow-up HPI:Subjective Peripheral neuropathy: Lali denies falling and dysesthesia. She has occasional, mild orthostatic symptoms. Fasciculations are unchanged. She denies the development of new weakness or atrophy. She describes occasional tremor when writing on the board. She also feels potential weakness of her left arm and forearm. PMHx: has a past medical history of Anemia (2018) and Asthma (2004). Meds: has a current medication list which includes the following prescription(s): alpha-lipoic acid and pyridoxine. Allergies: has No Known Allergies. FMHx: family history includes GI Disease in her brother; Heart Disease - Other in her maternal grandfather, paternal grandfather, and paternal grandmother; Lung Cancer in her maternal grandmother; Neurologic Disease in her maternal uncle and paternal grandfather; Stroke in her maternal grandmother. Soc Hx: reports that she has never smoked. She has never used smokeless tobacco. She reports that she does not currently use alcohol. She reports that she does not use drugs. Objective: Vitals: There were no vitals taken for this visit. Physical Examination: Mental Status: oriented to person, place, and date; mood and affect appropriate; appears to be in no apparent distress; normal thought content in conversation; fluency and comprehension intact Cranial Nerves: Pupils are equal and reactive bilaterally, extraocular muscles are intact, facial weakness is absent, spontaneous palatal movement is symmetric, the tongue protrudes in the midline Motor: DTRs symmetric, no long tract signs, no drift. Manual motor testing is normal Cerebellum: no abnormal rebound, no dysmetria Misc: full visual coello, no nystagmus, normal fine motor control, normal speech, normal station and gait including tandem gait Diagnostic Tests: I reviewed all labs I ordered. B6 level was decreased. She has a gland and an TTA antibodies. [place], lambda, and the kappa/lambda ratio were slightly elevated but other tests for monoclonal gammopathy were unremarkable Assessment: ICD-10-CM 1. Fasciculation R25.3 2. Paresthesia R20.2 1. Fasciculation Benign fasciculation syndrome 2. 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 Lab work was unremarkable with the exception of slight changes in her free light chains. We will repeat: - IMMUNOGLOBULIN FREE CHAINS B6 was slightly decreased. She is replacing. Finally, gliandin and TTA antibodies were abnormal. However, available evidence at this time suggests this might be unusual presentation for gluten intolerance. She might try a gluten free diet over the summer She it was taking alpha lipoic acid. - Instructions were given to call if current symptoms worsen or new symptoms arise. Voice recognition software was used for this note. I have edited this note but errors may occur Return in about 6 months (around 11/13/2023) for Office, With Raghav Pa CNP. documented in this encounter [facility] Progress note 02-06-2023 Note Date & Type Note Facility 02-06-2023 Note HNO ID: [id number] Author: Skylar Caldera APRN.CNP Service: ? Author Type: Nurse Practitioner Type: Progress Notes Filed: 02/06/2023 8:41 AM Note Text: CC: Patient presents with: Sore Throat: X5 days intermittent HPI: Lali Reese is a 32 year old female who presents to the office with complaint of sore throat for a few days. Symptoms are worsening Associated symptoms includes sore throat. Denies fever, cough, nausea, vomiting , and diarrhea. Treatments tried include nothing so far. with no relief of symptoms. Sick contacts: unknown. History of asthma, frequent episodes of bronchitis, chronic bronchitis, bronchiectasis or COPD: No Smoker: No Seasonal/environmental allergies: No The ROS is otherwise negative. The patient's pmh, medications, allergies, and past visits are reviewed. PHYSICAL EXAM: BP 123/88 Pulse 105 Temp 36.1 ?C (97 ?F) Resp 18 Wt 74.4 kg (164 lb) LMP 01/05/2023 (Approximate) SpO2 100% General appearance: alert, cooperative, pleasant, in no acute distress Head: Normocephalic Eyes: EOM's intact, conjunctiva pink and moist, no icterus, sclera white, non-injected Ears: Right ear: External ear/canal- Normal, TM - clear with good landmarks. Left ear: External ear/canal- Normal, TM - clear with good landmarks Oropharynx:moderate erythema, without exudates present Heart: Negative. RRR without obvious murmur, gallop, or rubs. No ectopy. Lungs: clear to auscultation, without rales or wheeze, good air exchange No past medical history on file. No past surgical history on file. ALLERGIES Patient has no known allergies. MEDICATIONS fluticasone (FLONASE ALLERGY RELIEF) 50 mcg/actuation nasal spray Use 1 [place] in each nostril once daily. cetirizine (ZYRTEC) 10 mg tablet Take 1 tablet by mouth once daily. triamcinolone acetonide (KENALOG) 0.1 % cream Apply 1 application to affected area twice daily. (Patient not taking: Reported on 05/10/2019 ) No family history on file. Social History Tobacco Use Smoking status: Never Smokeless tobacco: Never Vaping Use Vaping Use: Never used ASSESSMENT/PLAN: 1. Sore throat - ICD9: 462, ICD10: J02.9 - STREP A MOLECULAR (POC) - neg OTC meds for symptoms. Potential red flag symptoms discussed with the patient. Reviewed appropriate action plan to take if red flag symptoms occur. Patient agreeable to treatment plan. Skylar Caldera APRN.[facility] Progress note 01-11-2023 Note Date & Type Note Facility 01-11-2023 Note HNO ID: [id number] Author: Yosi Yost APRN.[facility] Service: ? Author Type: Nurse Practitioner Type: Progress Notes Filed: 01/11/2023 3:25 PM Note Text: Subjective HPI Nontoxic-appearing female presents urgent care chief complaint ear pressure transient tinnitus. Duration of symptoms on and off for 1 week. Associated symptoms listed above. Presents today for evaluation. Has not use any OTC medications. No loss of hearing or ear trauma. No otorrhea. No significant ear discomfort. History of cerumen impaction. Denies any fever body aches chills productive cough chest pain shortness of breath pleuritic pain hemoptysis nausea vomiting abdominal pain change in bowel or bladder habits. Past medical history prescription medication use and allergies reviewed. BP 137/99 Pulse 92 Temp 36.6 ?C (97.9 ?F) Resp 18 Wt 73.7 kg (162 lb 6.4 oz) LMP 01/05/2023 (Approximate) SpO2 100% .Patient presents with: Ear Problem: Ringing in R ear, x 1 week on and off History reviewed. No pertinent past medical history. History reviewed. No pertinent surgical history. ALLERGIES Patient has no known allergies. MEDICATIONS triamcinolone acetonide (KENALOG) 0.1 % cream Apply 1 application to affected area twice daily. (Patient not taking: Reported on 05/10/2019 ) History reviewed. No pertinent family history. Social History Tobacco Use Smoking status: Never Smokeless tobacco: Never Vaping Use Vaping Use: Never used Review of Systems Constitutional: Negative for chills, fever and malaise/fatigue. HENT: Positive for tinnitus. Negative for congestion, ear discharge, ear pain, sinus pain and sore throat. Eyes: Negative for blurred vision, pain, discharge and redness. Respiratory: Negative for cough, hemoptysis, sputum production, shortness of breath, wheezing and stridor. Cardiovascular: Negative for chest pain. Gastrointestinal: Negative for abdominal pain, diarrhea, nausea and vomiting. Musculoskeletal: Negative for myalgias. Skin: Negative for itching and rash. Neurological: Negative for dizziness and headaches. Objective Physical Exam Constitutional: General: She is not in acute distress. Appearance: She is not diaphoretic. HENT: Head: Normocephalic. Jaw: No trismus, tenderness, swelling or pain on movement. Right Ear: Tympanic membrane and external ear normal. Left Ear: Tympanic membrane and external ear normal. Ears: Comments: Moderate amount of fluid noted behind right TM. TMs pearly foster and intact bilaterally. Nose: Nose normal. Mouth/Throat: Mouth: Mucous membranes are moist. Pharynx: Oropharynx is clear. Uvula midline. No pharyngeal swelling, oropharyngeal exudate, posterior oropharyngeal erythema or uvula swelling. Eyes: Conjunctiva/sclera: Conjunctivae normal. Pupils: Pupils are equal, round, and reactive to light. Cardiovascular: Rate and Rhythm: Normal rate and regular rhythm. Heart sounds: Normal heart sounds. Pulmonary: Effort: Pulmonary effort is normal. No tachypnea, accessory muscle usage or respiratory distress. Breath sounds: Normal breath sounds. No stridor. No wheezing, rhonchi or rales. Abdominal: General: There is no distension. Palpations: Abdomen is soft. Tenderness: There is no abdominal tenderness. There is no guarding or rebound. Musculoskeletal: Cervical back: Normal range of motion and neck supple. No edema, erythema, rigidity or tenderness. No pain with movement. Normal range of motion. Lymphadenopathy: Cervical: No cervical adenopathy. Skin: General: Skin is warm and dry. Neurological: Mental Status: She is alert and oriented to person, place, and time. ASSESSMENT/PLAN: 1. Eustachian tube dysfunction, right - ICD9: 381.81, ICD10: H69.91 Patient diagnosed with eustachian tube dysfunction. Will use antihistamines and nasal spray. Follow-up with PCP 3 to 5 days symptoms are not improving. Counseled on moderately high BP. Patient was educated on supportive therapies. Patient was instructed to immediately proceed to emergency room for any new, worsening, or symptoms lasting longer than anticipated. The patient's clinical presentation is otherwise unremarkable at this time. Based on exam and clinical finding, the patient is stable for discharge. Plan of care was discussed with patient. Patient verbalizes understanding and agrees to plan of care. This note was generated using LxDATA software. It may contain errors in wording, punctuation, or spelling. Yosi Yost APRN.[facility] History of Present illness Narrative 01-11-2023 Yosi Yost APRN.VALVE REPAIRER RECLAMATION - 01/11/2023 3:09 PM EDT Note Date & Type Note Facility 01-11-2023 History of Presen t illness Narrative Subjective HPI Nontoxic-appearing female presents urgent care chief complaint ear pressure transient tinnitus. Duration of symptoms on and off for 1 week. Associated symptoms listed above. Presents today for evaluation. Has not use any OTC medications. No loss of hearing or ear trauma. No otorrhea. No significant ear discomfort. History of cerumen impaction. Denies any fever body aches chills productive cough chest pain shortness of breath pleuritic pain hemoptysis nausea vomiting abdominal pain change in bowel or bladder habits. Past medical history prescription medication use and allergies reviewed. BP 137/99 Pulse 92 Temp 36.6 C (97.9 F) Resp 18 Wt 73.7 kg (162 lb 6.4 oz) LMP 01/05/2023 (Approximate) SpO2 100% .Patient presents with: Ear Problem: Ringing in R ear, x 1 week on and off History reviewed. No pertinent past medical history. History reviewed. No pertinent surgical history. ALLERGIES Patient has no known allergies. MEDICATIONS triamcinolone acetonide (KENALOG) 0.1 % cream Apply 1 application to affected area twice daily. (Patient not taking: Reported on 05/10/2019 ) History reviewed. No pertinent family history. Social History Tobacco Use Smoking status: Never Smokeless tobacco: Never Vaping Use Vaping Use: Never used Review of Systems Constitutional: Negative for chills, fever and malaise/fatigue. HENT: Positive for tinnitus. Negative for congestion, ear discharge, ear pain, sinus pain and sore throat. Eyes: Negative for blurred vision, pain, discharge and redness. Respiratory: Negative for cough, hemoptysis, sputum production, shortness of breath, wheezing and stridor. Cardiovascular: Negative for chest pain. Gastrointestinal: Negative for abdominal pain, diarrhea, nausea and vomiting. Musculoskeletal: Negative for myalgias. Skin: Negative for itching and rash. Neurological: Negative for dizziness and headaches. Objective Physical Exam Constitutional: General: She is not in acute distress. Appearance: She is not diaphoretic. HENT: Head: Normocephalic. Jaw: No trismus, tenderness, swelling or pain on movement. Right Ear: Tympanic membrane and external ear normal. Left Ear: Tympanic membrane and external ear normal. Ears: Comments: Moderate amount of fluid noted behind right TM. TMs pearly foster and intact bilaterally. Nose: Nose normal. Mouth/Throat: Mouth: Mucous membranes are moist. Pharynx: Oropharynx is clear. Uvula midline. No pharyngeal swelling, oropharyngeal exudate, posterior oropharyngeal erythema or uvula swelling. Eyes: Conjunctiva/sclera: Conjunctivae normal. Pupils: Pupils are equal, round, and reactive to light. Cardiovascular: Rate and Rhythm: Normal rate and regular rhythm. Heart sounds: Normal heart sounds. Pulmonary: Effort: Pulmonary effort is normal. No tachypnea, accessory muscle usage or respiratory distress. Breath sounds: Normal breath sounds. No stridor. No wheezing, rhonchi or rales. Abdominal: General: There is no distension. Palpations: Abdomen is soft. Tenderness: There is no abdominal tenderness. There is no guarding or rebound. Musculoskeletal: Cervical back: Normal range of motion and neck supple. No edema, erythema, rigidity or tenderness. No pain with movement. Normal range of motion. Lymphadenopathy: Cervical: No cervical adenopathy. Skin: General: Skin is warm and dry. Neurological: Mental Status: She is alert and oriented to person, place, and time. ASSESSMENT/PLAN: 1. Eustachian tube dysfunction, right - ICD9: 381.81, ICD10: H69.91 Patient diagnosed with eustachian tube dysfunction. Will use antihistamines and nasal spray. Follow-up with PCP 3 to 5 days symptoms are not improving. Counseled on moderately high BP. Patient was educated on supportive therapies. Patient was instructed to immediately proceed to emergency room for any new, worsening, or symptoms lasting longer than anticipated. The patient's clinical presentation is otherwise unremarkable at this time. Based on exam and clinical finding, the patient is stable for discharge. Plan of care was discussed with patient. Patient verbalizes understanding and agrees to plan of care. This note was generated using LxDATA software. It may contain errors in wording, punctuation, or spelling. Yosi Yost APRN.VALVE REPAIRER RECLAMATION documented in this encounter [facility] Procedure note 01-08-2023 Shashank Quick DO - 01/08/2023 11:00 AM EDT Note Date & Type Note Facility 01-08-2023 Procedure note Associated Ord er(s): GENERAL PROCEDURE Chief Complaint: No chief complaint on file. HPI: Please see my previous dictation Report: Emg and Nerve Conduction Study worksheets can be found seperately under PROCEDURES tab in chart review ([facility]) or are readily available upon request. Skin temperature is 85.8 F of the left lower extremity, 87.4 F of the left upper extremity, and 86.2 F of the right lower extremity Assessment: ICD-10-CM 1. Fasciculation R25.3 2. Paresthesia R20.2 Plan: 1. Fasciculation Today's EMG is normal with respect to fasciculations. - ALDOLASE; Future - CK WITH REFLEX TO CK ISOENZYME; Future - PTH INTACT; Future - VITAMIN D, (1,25 DIHYDROXY); Future - PARANEOPLASTIC SYNDROME; Future 2. Paresthesia Today's EMG confirms a length-dependent, axonal, primarily sensory neuropathy in the lower extremities. - COMPREHENSIVE METABOLIC PANEL; Future - FOLATE, SERUM; Future - HEMOGLOBIN A1C; Future - IMMUNOGLOBULIN FREE CHAINS; Future - MONOCLONAL PROT IMMUNO, SERUM; Future - PROTEIN ELECTROPHORESIS SERUM, WITH REFLEX; Future - TSH; Future - VITAMIN B12; Future - METHYLMALONIC ACID; Future However this does not explain the totality of her paresthesia. I will also keep in mind small fiber neuropathies) - BRYAN MULTIPLEX SCRN WITH REFLEX; Future - ANGIOTENSIN CONVERTING ENZYME; Future - OLIVIA BATTERY(SSA,SSB,SM,BICYCLE MESSENGER); Future - GLIADIN ANTIBODIES; Future - LYME AB; Future - SEDIMENTATION RATE, AUTOMATED; Future - T-TRANSGLUTAMINASE IGG/IGA, AB; Future - VITAMIN B6; Future - VITAMIN E; Future - Instructions were given to call if current symptoms worsen or new symptoms arise. Voice recognition software was used for this note. I have edited this note but errors may occur Return in about 4 months (around 05/11/2023) for Office. Shashank Quick D.O., FACN [facility] Procedure note 01-08-2023 Shashank Quick DO - 01/08/2023 11:00 AM EDT Note Date & Type Note Facility 01-08-2023 Procedure note Associated Ord er(s): GENERAL PROCEDURE Chief Complaint: No chief complaint on file. HPI: Please see my previous dictation Report: Emg and Nerve Conduction Study worksheets can be found seperately under PROCEDURES tab in chart review ([facility]) or are readily available upon request. Skin temperature is 85.8 F of the left lower extremity, 87.4 F of the left upper extremity, and 86.2 F of the right lower extremity Assessment: ICD-10-CM 1. Fasciculation R25.3 2. Paresthesia R20.2 Plan: 1. Fasciculation Today's EMG is normal with respect to fasciculations. - ALDOLASE; Future - CK WITH REFLEX TO CK ISOENZYME; Future - PTH INTACT; Future - VITAMIN D, (1,25 DIHYDROXY); Future - PARANEOPLASTIC SYNDROME; Future 2. Paresthesia Today's EMG confirms a length-dependent, axonal, primarily sensory neuropathy in the lower extremities. - COMPREHENSIVE METABOLIC PANEL; Future - FOLATE, SERUM; Future - HEMOGLOBIN A1C; Future - IMMUNOGLOBULIN FREE CHAINS; Future - MONOCLONAL PROT IMMUNO, SERUM; Future - PROTEIN ELECTROPHORESIS SERUM, WITH REFLEX; Future - TSH; Future - VITAMIN B12; Future - METHYLMALONIC ACID; Future However this does not explain the totality of her paresthesia. I will also keep in mind small fiber neuropathies) - BYRAN MULTIPLEX SCRN WITH REFLEX; Future - ANGIOTENSIN CONVERTING ENZYME; Future - OLIVIA BATTERY(SSA,SSB,SM,BICYCLE MESSENGER); Future - GLIADIN ANTIBODIES; Future - LYME AB; Future - SEDIMENTATION RATE, AUTOMATED; Future - T-TRANSGLUTAMINASE IGG/IGA, AB; Future - VITAMIN B6; Future - VITAMIN E; Future - Instructions were given to call if current symptoms worsen or new symptoms arise. Voice recognition software was used for this note. I have edited this note but errors may occur Return in about 4 months (around 05/11/2023) for Office. Shashank Quick D.O., FACN documented in this encounter [facility] Evaluation note Note Date & Type Note Facility documented in this encounter [facility] Evaluation note Note Date & Type Note Facility documented in this encounter [facility] Evaluation note Note Date & Type Note Facility documented in this encounter [facility] Summary Purpose Family History No Family History Records FoundNo Family History Records Found Advance Directives No Advanced Directives Records FoundNo Advanced Directives Records Found Additional Source Comments Reason for Visit (unrecogniz ed section and content) Reason Comments Ear Problem Ringing in R ear, x 1 week on and off Reason Comments Follow-up Source Comments (unrecognize d section and content) In the event this informatio n is protected by the Federal Confidentiality of Alcohol and Drug Abuse Patient Records regulations: The Federal rules restrict any use of the information to criminally investigate or prosecute any alcohol or drug abuse patient.[facility] Teams (unrecognized sec tion and content) INFORMATION SOURCE (unrecogn ized section and content) DATE CREATED AUTHOR AUTHOR'S ORGANIZ ATION 05/17/2023 [facility] FOR RECORDS PERTAINING TO PATIENTS WHO ARE OR HAVE BEEN ENROLLED IN A CHEMICAL DEPENDENCY/SUBSTANCEABUSE PROGRAM, SOME INFORMATION MAY BE OMITTED. This clinical summary was aggregated from multiple sources. Caution should be exercised in using it in the provision of clinical care. This summary normalizes information from multiple sources, and as a consequence, information in this document may materially change the coding, format and clinical context of patient data. In addition, data may be omitted in some cases. CLINICAL DECISIONS SHOULD BE BASED ON THE PRIMARY CLINICAL RECORDS. [email or web address] provides no warranty or guarantee of the accuracy or completeness of information in this document.
[2023-05-21 17:07] LABS: Free Kappa Light Chains 40.1 mg/L (3.3-19.4); Free Lambda Light Chains 22.7 mg/L (5.7-26.3)
== END | disposition home or self-care (01) ==
LOC: MFPLAB 16:20
PROVIDERS: PCP Family Medicine; Visit Provider Family Medicine
DX: R20.2 Paresthesia of skin (principal)
CPT/HCPCS: 36415; 83883

== ENCOUNTER → 2023-06-26 | Outpatient (CLI) | payer OTHER, SELFPAY ==
[2023-06-29 15:07] LABS: Deamidated Gliadin IgA >150 units (0-19); Deamidated Gliadin IgG 44 units (0-19); Endomysial Antibody IgA Positive (Negative); Immunoglobulin A 173 mg/dL (87-352); t-Transglutaminase IgA 41 U/mL (0-3)
== END | disposition home or self-care (01) ==
LOC: MTLAB 10:30
PROVIDERS: PCP Family Medicine; Referring Provider Family Medicine; Visit Provider Family Medicine
DX: K90.0 Celiac disease (principal)
CPT/HCPCS: 36415; 82784; 83516; 86255

== ENCOUNTER → 2023-09-03 | Outpatient (CLI) | payer OTHER, SELFPAY ==
--- NOTE | 2023-09-03 14:35 | RAD_ITS ---
EXAM: XR ABDOMEN, 2 VIEWS AND XR CHEST, 1 VIEW CLINICAL INDICATION: pain TECHNIQUE: Frontal view of the chest, frontal view of the abdomen/pelvis and upright or decubitus view of the abdomen. COMPARISON: No relevant prior studies available. FINDINGS: CHEST: LUNGS AND PLEURAL SPACES: Normal. No consolidation or edema. No pneumothorax. No effusion. HEART: Normal. Normal heart size. MEDIASTINUM: No mediastinal or hilar mass. ABDOMEN: INTRAPERITONEAL SPACE: No free air. GASTROINTESTINAL TRACT: Normal bowel gas pattern. ORGANS: Unremarkable as visualized. No organomegaly. No abnormal calcifications. TUBES, LINES AND DEVICES: None. BONES/JOINTS: Transitional vertebra noted with sacralization of the left side of L5. SOFT TISSUES: No acute findings. RAD/Acute Abdomen Inc Chest IMPRESSION: No acute findings in the chest, abdomen or pelvis. Electronically Signed: Josh Pike MD at 16:33 EDT ,
[2023-09-03 18:09] LABS: Absolute Lymphocyte Count 2.16 X10^3/uL (0.83-4.51); Basophil# 0.08 X10^3/uL; Basophil% 0.9 % (0-1); Eosinophil# 0.02 X10^3/uL; Eosinophils% 0.2 % (0-5); Hematocrit 40.1 % (37-47); Hemoglobin 12.6 g/dL (12.0-15.0); Lymphocyte # 2.16 X10^3/ul (0.83-4.51); Lymphocyte % 23.9 % (19-41); Mean Corp Hgb Conc 31.4 g/dL (32-36); Mean Corpuscular Volume 86.1 fL (81-99); Mean Platelet Vol. 11.6 fl (6.2-12.0); Monocyte# 0.76 X10^3/uL; Monocyte% 8.4 % (0-10); NRBC Flagged by Analyzer 0 % (0-5); Neutrophil % 66.4 % (47-70); Platelet Count 264 K/mm3 (150-450); RBC Distribution Width CV 13.3 % (11.6-14.6); RBC Distribution Width SD 41.2 fl (35.1-43.9); Red Blood Count 4.66 M/mm3 (4.2-5.4)
[2023-09-03 18:55] LABS: AST(SGOT) 21 U/L (15-37); Alanine Aminotransfer ALT/SGPT 24 U/L (13-56); Albumin, Serum 4.3 g/dL (3.2-5.0); Alkaline Phosphatase 82 U/L (45-117); Anion Gap 8 (5-15); BUN 12 mg/dL (7-18); BUN/Creat Ratio 11.9 RATIO (10-20); Calcium,Total 9.7 mg/dL (8.5-10.1); Chloride 103 mmol/L (98-107); Creatinine, Serum 1.01 mg/dL (0.55-1.02); EST Glomerular Filtration Rate 67 mL/min (>60); Est Glom Filt Rate - Afr Amer 81 mL/min (>60); Globulin 4.2 g/dL (2.2-4.2); Glucose 83 mg/dL (74-106); Potassium 3.3 mmol/L (3.5-5.1); Protein, Total 8.5 g/dL (6.4-8.2); Sodium Level 137 mmol/L (136-145)
== END | disposition home or self-care (01) ==
LOC: MTLAB 14:32
PROVIDERS: PCP Family Medicine; Referring Provider Family Medicine; Visit Provider Family Medicine
DX: R10.9 Unspecified abdominal pain (principal)
CPT/HCPCS: 36415; 74022; 80053; 85025

== ENCOUNTER → 2023-09-03 | Outpatient (CLI) | payer OTHER, SELFPAY ==
[2023-09-03 18:32] LABS: Color, Urine Yellow (Yellow); Glucose, Dipstick Normal (Normal); Ketone-Dipstick Negative (Negative); Leukocyte Esterase-Dipstick Negative /ul (Negative); Nitrite-Dipstick Negative (Negative); Occult Blood-Urine Negative /ul (Negative); Protein-Dipstick Negative (Negative); Urine Bilirubin Dipstick Negative (Negative); Urine Clarity Clear (Clear); Urine Urobilinogen Normal (Normal)
== END | disposition home or self-care (01) ==
PROVIDERS: PCP Family Medicine; Referring Provider Family Medicine; Visit Provider Family Medicine
DX: R10.9 Unspecified abdominal pain (principal)
CPT/HCPCS: 81002; 87086; 87088

== ENCOUNTER → 2023-11-27 | Outpatient (CLI) | payer OTHER, SELFPAY ==
[2023-11-27 12:49] LABS: Erythrocyte Sedimentation Rate 9 mm/hr (0-30)
[2023-11-27 13:21] LABS: ALB/GLOB Ratio 0.9 RATIO (0.9-2.4); AST(SGOT) 18 U/L (15-37); Alanine Aminotransfer ALT/SGPT 20 U/L (13-56); Albumin, Serum 4.1 g/dL (3.2-5.0); Alkaline Phosphatase 73 U/L (45-117); Anion Gap 6 (5-15); BUN 10 mg/dL (7-18); BUN/Creat Ratio 9.3 RATIO (10-20); CRP 4.23 mg/L (0.0-3.0); Chloride 107 mmol/L (98-107); Creatinine, Serum 1.07 mg/dL (0.55-1.02); EST Glomerular Filtration Rate 62 mL/min (>60); Est Glom Filt Rate - Afr Amer 75 mL/min (>60); Globulin 4.4 g/dL (2.2-4.2); Glucose 93 mg/dL (74-106); Potassium 3.7 mmol/L (3.5-5.1); Protein, Total 8.5 g/dL (6.4-8.2); Rheumatoid Factor < 10.0 IU/mL (<15); Sodium Level 138 mmol/L (136-145); Uric Acid 4.3 mg/dL (2.6-6.0)
[2023-11-27 14:06] LABS: Vitamin B12 399 pg/mL (211-911)
[2023-11-28 15:08] LABS: ANTINUCLEAR ANTIBODIES DIRECT Negative (Negative)
[2023-12-03 22:07] LABS: PROEL- A/G Ratio 1.2 (0.7-1.7); PROEL- Albumin 4.2 g/dL (2.9-4.4); PROEL- Alpha-1 Globulin 0.2 g/dL (0.0-0.4); PROEL- Alpha-2 Globulin 0.7 g/dL (0.4-1.0); PROEL- Gamma Globulin 1.6 g/dL (0.4-1.8); PROEL- Globulin, Total 3.5 g/dL (2.2-3.9); PROEL- TOTAL PROTEIN 7.7 g/dL (6.0-8.5); PROEL-M-Spike Not Observed g/dL (Not Observed); Vitamin B1, Thiamine 79.2 nmol/L (66.5-200.0)
== END | disposition home or self-care (01) ==
LOC: MFPLAB 10:27
PROVIDERS: PCP Family Medicine; Visit Provider Family Medicine
DX: M25.50 Pain in unspecified joint (principal); G62.9 Polyneuropathy, unspecified; R60.9 Edema, unspecified
CPT/HCPCS: 36415; 80053; 82607; 82746; 84165; 84207; 84425; 84443; 84550; 85652; 86038; 86140; 86431

== ENCOUNTER → 2024-02-03 | Outpatient (CLI) | payer OTHER, SELFPAY | END | disposition home or self-care (01) | LOC: OPBD 13:50 | PROVIDERS: PCP Family Medicine; Referring Provider Internal Medicine Gastroenterology; Visit Provider Internal Medicine Gastroenterology | DX: K90.0 Celiac disease (principal) | CPT/HCPCS: 77080 ==

== ENCOUNTER → 2024-03-04 | Outpatient (CLI) | payer OTHER, SELFPAY ==
--- NOTE | 2024-03-04 09:02 | BI_ITS ---
MAMMOGRAPHY - BILATERAL DIAGNOSTIC REASON FOR EXAM: Female, 33 years old. 3 month history of right lateral breast pain. Prior right excisional breast biopsy. PERTINENT HISTORY: Non-contributory. TECHNIQUE: Digital bilateral breast sheri (3D mammographic acquisition) in the CC and MLO projections. 2-D mediolateral oblique (MLO) and craniocaudad (CC) views of both breasts were obtained. CAD: Full Field Digital Mammography with Computer Added Detection was performed. COMPARISON: Comparison is made with prior examination dated July 18, 2020. FINDINGS: Breast Composition: The breasts are extremely dense, which lowers the sensitivity of mammography. There are no dominant masses or suspicious calcifications. No other significant abnormalities are identified. There has been no significant change since the prior study. BI/DIAG MAMM W/CAD, BILAT IMPRESSION: Negative diagnostic mammogram. With the patient''s history of pain in the lateral aspect of the right breast, correlation with ultrasound is recommended. ASSESSMENT CATEGORY: BIRADS Category 0: Incomplete. Need additional imaging evaluation. A letter regarding these results will be sent to the patient by the facility within 30 days. Approximately 10% of breast cancers are not detected by mammography. A normal mammogram should not delay biopsy of a clinically suspicious abnormality. Electronically Signed: Wilberto De Paz MD at 10:16 EST ,
--- NOTE | 2024-03-04 09:03 | US_ITS ---
STUDY: ULTRASOUND BREAST - RIGHT REASON FOR EXAM: Female, 33 years old. Right breast tenderness. TECHNIQUE: Axial and longitudinal images of the RIGHT breast were performed with a high resolution ultrasound transducer. # OF IMAGES: 55 COMPARISON: Comparison is made with prior mammogram done earlier in the day and prior sonogram of the right breast dated July 18, 2020. FINDINGS: RIGHT Breast: The lateral half of the right breast was examined with ultrasound. The palpable lump corresponds to 1.1 cm x 1 cm x 0.7 cm well-defined hypoechoic solid nodule at the 12:00 position of the breast 4 cm from the nipple. Biopsy recommended. US/Breast Limited Unilateral IMPRESSION: 1.1 cm x 1 cm x 0.7 cm well-defined hypoechoic solid nodule at the 12:00 position of the breast at 4 cm from the nipple. Biopsy recommended. ASSESSMENT CATEGORY: BIRADS Category 4: Suspicious - Biopsy Should Be Considered. A letter regarding these results will be sent to the patient by the facility within 30 days. Electronically Signed: Wilberto De Paz MD at 12:19 EST ,
== END | disposition home or self-care (01) ==
LOC: OPBI 09:00
PROVIDERS: PCP Family Medicine; Referring Provider Obstetrics & Gynecology; Visit Provider Obstetrics & Gynecology
DX: N64.4 Mastodynia (principal)
CPT/HCPCS: 76642; 77062; 77066; G0279

== ENCOUNTER 2024-03-15 07:30 | Day surgery (SDC) | payer OTHER, SELFPAY ==
[2024-03-15] VITALS (9 sets, daily range): BP systolic 95–122; BP diastolic 64–85; PULSE 64–99; RESP 16–18; TEMP 36.3–36.8; O2SAT 97–100; BMI 24.5
[2024-03-15 07:58] LABS: Internal QC Validated? YES +Cl - CLEAR BKGD; Pregnancy, Urine Negative Negative
--- NOTE | 2024-03-15 07:59 | HP.PCM_ITS ---
History and Physical Date of Admission: 03/15/24 Intake Vital Signs 07/12/2315:55 03/09/2412:58 03/11/2413:39 Height 5 ft 8 in 5 ft 8 in 5 ft 8 in Weight: 161 lb 2 oz BMI 24.5 BP 132/88 H Blood Pressure Location Rt brachial Position Sitting Respiration 18 Pulse 105 H Pulse Source Monitor Temp 97.6 F L Temp Source Temporal Pulse Oximetry (%) 100 Oxygen Delivery Method room air Intake Visit Reasons: BIRADS 4 Chief Complaint: BIRADS 4 Right Breast Auto Body Customizer Required: No Is patient in pain?: No Allergies No Known Allergies Allergy (Verified 03/11/24 13:40) Medications ?Medication ?Instructions ?Recorded ?Confirmed ?Type ferrous sulfate 325 mg (65 mg 325 mg PO QDAY 03/11/24 03/11/24 History iron) tablet (Feosol) Have you fallen in the past year?: No PFSH Medical History (Updated 03/12/24 @ 09:[address] Rory Longoria MD) Abnormal mammogram of right breast Celiac disease Family history of hearing loss at age younger than 7 years Anemia affecting Fibrous breast lumps Surgical History (Updated 03/11/24 @ 13:38 by Elena Real) History of surgery Family History Grandfather Heart diseaseGrandmother Heart diseaseGrandfather Heart diseaseGrandmother Cancer Lung Father Hearing loss Social History (Updated 03/11/24 @ 13:39 by Elena Real) Smoking Status: Never smoker alcohol intake: never substance use type: does not use HPI HPI HPI: Patient is a 33-year-old female here with breast mass on the right. The patient did not note any palpation of this mass. She states she was having breast pain in the lower outer quadrant of the right breast and had an ultrasound and m ammogram which showed this mass at the 12 o'clock position. 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 ROS General General: No weight change, appetite, fatigue, colon cancer, breast cancer or weakness HEENT HEENT: No difficulty swallowing, eye injury, eye surgery, swollen glands or hoarseness Endo Endocrine: No thyroid disease, diabetes mellitus, thyroid cancer, Hair loss, heat intolerance or cold intolerance Skin Skin: No rash or changing moles Breast Breast: Yes breast pain and abnormal mammogram; No left breast lump, right breast lump, nipple discharge, abnormal US or breast enlargement Additional Details: Right breast Musc Musculoskeletal: No back problems, arthritis, rheumatoid arthritis, gout or joint pain Cardio Cardiovascular: No murmur, pacemaker, heart disease, atrial fibrillation, high blood pressure, heart attack, heart stent, palpitations, shortness of breat with exertion or chest pain Psych Psychiatric: No depression, anxiety or hearing voices Resp Respiratory: No shortness of breath, No sleep apnea, No cough, No COPD, No asthma, No emphysema and No wheezing Gastro Gastrointestinal: No abdominal pain, No nausea or vomiting, No diarrhea, No constipation, No blood in stool, No acid reflux, No hemorrhoids, No ulcers, No gallbladder problem and No black,tarry stools Additional Details: Celiac disease Drake Hematologic: No blood thinners, No blood disorders, No bleeding, No anemia and No blood clots Neuro Neurologic: No system reviewed and no additional complaints, except as documented, No as per HPI, No abnormal gait, No abnormal hearing, No abnormal movements, No abnormal speech, No behavioral changes, No burning sensations, No confusion, No convulsions, No disequilibrium, No dizziness, No localized weakness, No frequent falls, No headache(s), No lack of coordination, No loss of vision, No memory loss, Yes numbness, No other visual disturbances, No radicular pain, No restless legs, No sensory deficit, No syncope, Yes tingling, No tremor(s), No weakness and No other Exam Const General: cooperative Orientation: alert and oriented x3 HENOR Head: normal to inspection Neck Neck: normal visual inspection and full ROM Chest Chest palpation & inspection: normal inspection of the chest Resp Effort & Inspection: normal respiratory effort Auscultation: clear to auscultation bilaterally Cardio Rate: regular rate Rhythm: regular rhythm GI Inspection: non-distended Palpation: soft and nontender Skin General: no rashes or lesions noted Neuro General: patient alert and patient oriented x3 Extrem General: full ROM Psych Appearance: grossly normal Mental Status: mental status grossly normal Office Procedures Procedure Time Out Time Out Informed consent given: Yes Consent signed: Yes Time out checklist: patient, procedure, site marked/identified, positioning of patient, supplies available, allergies confirmed and team agrees on procedure Time out staff in room: Yes Time out verified: Yes Time out date: 03/11/24 Time out time: 13:41 Assessment and Plan Assessment and Plan (1) Breast mass, right: Status: Acute Plan: The patient has a breast mass at the 12 o'clock position of the right breast. I discussed core needle biopsy versus excisional biopsy with her and I discussed both the risks and benefits of both procedures. The patient elects for excisional biopsy and I discussed performing ultrasound-guided wire localization and excision of this mass. The patient understands and is willing to proceed. I discussed the risks of bleeding and infection and need for further surgery if this comes back as a cancerous mass. Rory Longoria MD Pager: [facility] [address] [place] [address] [address] [place] [address] Office: I have examined the patient and the H&P has been reviewed. There are no clinical changes since date of exam.
--- NOTE | 2024-03-15 08:06 | PRE.ANES_ITS ---
ASA Classification* ASA Classification ASA Classification: 2 Assessment & Plan Anesthesia* Anesthesia Assessment Anesthesia Assessment: Discussed sedation and/or anesthesia options, risks, benefits, and alternatives with patient/parents/legal guardian/POA. Questions invited. The patient/parents/legal guardian/POA seems to understand and agrees to proceed with anesthesia plan. Reviewed the physical assessment, medical history, allergy history and patient home medications list prior to surgery/procedure/anesthetic and documented any changes. Performed airway and anesthesia risk assessments. Anesthesia Type Anesthesia Type: MAC (General as a backup.) History Source History Obtained from:: Patient and Chart Anesthesia Focused Assessment* Temperature: 97.4 F Pulse Rate: 99 Blood Pressure: 122/85 Respiratory Rate: 18 Pulse Ox: 100 Oxygen Delivery Method: Room Air Airway Assessment Mouth opens: >3 cm Mallampati Score: II Teeth Condition: Intact Neck Range of motion (ROM): Full ROM Focused Labs Anesthesia Preop lab: CBC WBC 9.0 K/mm3 (4.4-11.0) 09/03/23 14:35 RBC 4.66 M/mm3 (4.2-5.4) 09/03/23 14:35 Hgb 12.6 g/dL (12.0-15.0) 09/03/23 14:35 Hct 40.1 % (37-47) 09/03/23 14:35 Plt Count 264 K/mm3 (150-450) 09/03/23 14:35 CHEMISTRY Potassium 3.7 mmol/L (3.5-5.1) 11/27/23 10:29 Sodium 138 mmol/L (136-145) 11/27/23 10:29 Magnesium 2.2 mg/dL (1.6-2.6) 07/01/22 14:17 BUN 10 mg/dL (7-18) 11/27/23 10:29 Creatinine 1.07 mg/dL (0.55-1.02) H 11/27/23 10:29 Glucose 93 mg/dL (74-106) 11/27/23 10:29 TSH 1.170 uIU/mL (0.358-3.740) 11/27/23 10:29 COAG Urine Test Negative Negative 03/15/24 07:40 Pre-Assessment Diagnosis/Proposed Procedure Planned Operative Procedure(s): RIGHT U/S GUIDED WIRE LOCALIZATION LUMPECTOMY Anesthesia History Anesthesia History - precision assembler: Anesthesia History - precision assembler Hx Hospitalization No 03/14/24 14:19 Any Problems With Anesthesia No 03/14/24 14:19 Cholinesterase deficiency No 03/14/24 14:19 You/Your Family Experience No 03/14/24 14:19 fever (hyperthermia) with Relationship Recent Exposure to Contagious No 03/15/24 07:46 Disease Does patient have nerve No 03/14/24 14:19 stimulator Patient instructed to have device shut off --Does patient have Pacemaker No 03/15/24 07:46 or ICD? When Was Last Pacemaker Check QUESTION #4 FULL TEXT: You/Your Family Experience fever (hyperthermia) with Anesthesia Last Oral Intake Last Oral intake: Last Oral Intake NPO since 23:00 03/15/24 07:46 Meds taken in AM with sips of water? Meds patient instructed to take am of surgery PONV PONV - precision assembler: PONV - precision assembler Female Yes 03/14/24 14:19 HX of Motion Sickness Yes 03/14/24 14:19 HX of N/V After Surgery No 03/14/24 14:19 Non-Smoker Yes 03/14/24 14:19 Duration of Surgery greater No 03/14/24 14:19 than 60 minutes Number of Risk Factors 3 03/14/24 14:19 PONV Score Moderate Risk 03/14/24 14:19 Height & Weight Height & Weight: Anesthesia: Height & Weight Height 5 ft 8 in 03/15/24 07:46 Weight: 73 kg 03/15/24 07:46 Body Mass Index (BMI) 24.5 03/15/24 07:46 Respiratory Assessment Respiratory Assessment - precision assembler: Respiratory Tract Infection Hx - precision assembler Hx Respiratory Tract Infection No 03/14/24 14:19 STOP Sleep Apnea STOP Sleep Apnea - precision assembler: STOP Sleep Apnea - precision assembler Hx Hypertension No 03/14/24 14:19 Hx Sleep Apnea No 03/14/24 14:19 CPAP BIPAP Do you snore loudly (louder No 03/14/24 14:19 than talking or can be heard Do you often feel tired/ No 03/14/24 14:19 fatigued/ sleepy during daytime? Has anyone observed you stop No 03/14/24 14:19 breathing during sleep? STOP Results Negative 03/14/24 14:19 QUESTION #5 FULL TEXT : Do you snore loudly (louder than talking or can be heard through closed doors)? Tobacco Use History Tobacco Use History - precision assembler: Tobacco Use History - precision assembler Tobacco Use Smoking Status Never smoker 03/14/24 14:19 Hx Tobacco Use No 03/14/24 14:19 Years Smoking Packs Smoked per Day Smoking Cessation Date was within the last 15 years Hx Smoking Cessation Date Hx Smoking Cessation Counseling Hematologic Medial History Hematologic Hx - precision assembler: Hematologic Medical Hx - finish carpenter Hx of Blood Transfusion No 03/14/24 14:19 Hx of Transfusion in last 3 No 03/14/24 14:19 Months Date of Last Transfusion (if within last 3 months) Ever experience any problems No 03/14/24 14:19 with transfusion(s)? Specify any problems Hx of Preganancy in last 3 No 03/14/24 14:19 Months Nurse Filling Out Transfusion DSCHRIBER 03/14/24 14:19 & Questions: Date: 03/14/24 03/14/24 14:19 Time: 14:20 03/14/24 14:19 Patient unable to answer at this time (ie. confused, unrespo /Reproduction History /Reproductive History - precision assembler: /Reproductive Hx- precision assembler Hx Now No 03/14/24 14:19 Gestational Age (in weeks): EDC: Hx Hx Para Hx Section SAB No 03/09/24 12:58 Active Medications Active Medications: Current Medications Generic Name Dose Route Start Last Admin Trade Name Freq PRN Reason Stop Dose Admin Cefazolin Sodium 2 gm/ N/A 20 mls @ 400 mls/hr 03/15/24 09:00 IV 03/15/24 09:02 PREOP [facility] Medical History Anxiety Low iron Restless legs Non-smoker Palpitations Abnormal mammogram of right breast Celiac disease Family history of hearing loss at age younger than 7 years Anemia affecting Fibrous breast lumps Home Medications ?Medication ?Instructions ?Recorded ?Last Taken ?Type ferrous sulfate 325 mg (65 mg 325 mg PO QDAY 03/11/24 Unknown History iron) tablet (Feosol) Allergy/AdvReac Type Severity Reaction Status Date / Time No Known Allergies Allergy Verified 03/15/24 07:46 Family History Grandfather Heart disease Grandmother Heart disease Grandfather Heart disease Grandmother Cancer Lung Father Hearing loss Surgical History History of esophagogastroduodenoscopy (EGD) History of surgery Social History Smoking Status: Never smoker alcohol intake: never substance use type: does not use Review of Systems (Anesthesia) ROS Narrative System reviewed and no additional complaints, except as documented.
[2024-03-15] MEDS: Cefazolin 2 GM in Syringe IV (08:53)
--- NOTE | 2024-03-15 09:00 | BRBX_PTH ---
PATIENT: LALI FORREST LOC: [facility] [place] U#:[id number] AGE/SX: 33/F ROOM: RE03/15/[address]: Dr. Rory Longoria MD : 1990 BED: DIS: 03/15/2024 SPEC #: [id number] RECD: 03/15/24 11:01 STATUS: NAINA REReji #: [id number] TUNG: 03/15/24 09:[address]: Rory Longoria DEPT: SURGICAL PATHOLOGY RECD BY: Raya Rivera ENTERED: 03/15/24 11:48 SP TYPE: BREAST BX OTHR DR: Dr. Smita Tamayo MD Tissues: Right breast, NOS Procedures: Surgery Specimen Level IV HEADER OPERATION: Ultrasound guided wire breast, lumpectomy PRE-OP DIAGNOSIS: Right breast mass TISSUE SUBMITTED: Right breast mass MICROSCOPIC DIAGNOSIS Right breast mass, lumpectomy with needle localization: Fibroadenoma. Negative for atypia or malignancy. See comment. 03/17/2024 COMMENT Please make reference to previous specimen [id number] right breast mass, excisional biopsy with diagnosis of fibroadenoma. MICROSCOPIC DESCRIPTION Slides are reviewed. GROSS DESCRIPTION Received in fixative is one container labeled with the patient's name and designated Right breast mass. The specimen consists of a piece of fibroadipose tissue with needle localization measuring 4.5 x 3.0 x 2.0cm. No orientation is provided. Sections reveal a vivar solid nodule measuring 1.5 x 1.0 x 1.0cm. The rest of the specimen reveal vivar-white fibrous cut surfaces. The entire specimen is submitted in ten cassettes from one end to another end. 03/16/2024 TC:1 CPT:96557
[2024-03-15] MEDS: Bupivacaine 0.25% 30 ML Vial (09:19)
--- NOTE | 2024-03-15 09:32 | PCM.POST.ANE ---
Anesthesia: Postop Eval I Current Vital Signs Temperature: 98.2 F Pulse Rate: 75 Blood Pressure: 104/70 Respiratory Rate: 16 Pulse Ox: 97 Oxygen Delivery Method: Room Air Assessment Airway patent: Yes Spontaneous unlabored respirations: Yes Mental status: Awake nausea: No Vomiting: No Anesthesia Complication: No Fluid Hydration Crystalloid volume administer (ml): 20 Total IV fluid infused: 20 Progress Note Anesthesia document: Postop Eval 1 completed: Yes
--- NOTE | 2024-03-15 09:48 | PCM.OPRPT ---
Operative Report (Standard) Operative Information Date of Procedure: 03/15/24 Pre-Operative Diagnosis: Right breast mass Post-Operative Diagnosis: Right breast mass Surgery/Procedure Performed: 1. Ultrasound-guided wire localization of right breast mass 2. Right partial mastectomy automobile technician: Yes Business Analyst Intern: Dorcas Stephens Tasks completed by nutritional assistant: Retracting Type of Anesthesia: Local MAC RN Documented Start/Stop Times: Operation Date: 03/15/24 09:00 Case Time Into Pre-Op 03/15/24 07:34 Out of Pre-Op 03/15/24 08:43 Anesthesia Start 03/15/24 08:46 Into Room 03/15/24 08:46 Procedure Start 03/15/24 09:06 Procedure End 03/15/24 09:21 Anesthesia End 03/15/24 09:25 Out of Room 03/15/24 09:25 Into Recovery 03/15/24 09:28 Procedure Start Time: 09:06 Procedure Stop Time: 09:21 Select all DRAINS/GRAFTS/IMPLANTS that apply: None Estimated Blood Loss: 5 Specimen collected: Yes Description of specimen(s) removed: Right breast mass Description of surgery: The patient was brought to the operating room and MAC anesthesia was induced. Ultrasound was used to localize the mass at the 12 o'clock position of the right breast. Area overlying this was prepped with alcohol and then the wire was placed into the mass under ultrasound guidance. Next the breast was reprepped and draped. The area overlying the mass was marked and injected with local anesthetic. Skin incision was made and the wire was brought into the incision. Flaps were raised bilaterally using electrocautery. The wire was followed to the mass which was palpable. The area was resected using electrocautery dissection. It was sent for pathology. The cavity was irrigated and suctioned dry. There was good hemostasis. The skin was closed with 3-0 Vicryl sutures and a running 4-0 Monocryl suture. Dermabond was applied. Patient was taken to PACU in stable condition. Surgical Findings: 1 cm breast mass of the right breast Complications Complications: No Admit VTE Documentation VTE Mechan Device Prophylaxis: SCD's
--- NOTE | 2024-03-15 09:54 | EX.PCM.DISCH ---
Discharge Instructions Procedure Breast Surgery Diet Discharge Diet: No restrictions Activity Discharge Activity: May Not Drive (for 2-3 days or while taking narcotic pain medications.) May shower in (days): 1 Lifting Restrictions: 15 lbs for 2-3 days Dressing / Incision Call your doctor if your incision/area has: Continuous Slow Oozing, Sudden Increased Bleeding, Increased Pain/ Swelling, Increased Redness, Foul Smelling Discharge and Swelling at the incision site Call your doctor if you observe: Fever of 101 or Higher Suture Line Care: Avoid Pulling/Pushing and Avoid Pinching/Bending Additional Dressing/Incision Instructions:: Alternate ibuprofen and Tylenol for pain control. Oxycodone for breakthrough pain. Follow Up Care Please Follow Up With: Rory Longoria MD When: Please call to schedule 2 week follow up appointment. [phone] Test Results: Test results from this visit will be discussed in further detail at your follow-up appointment, if applicable. Discharge Plan Admission Attending Provider: Rory Longoria Primary Care Provider: Smita Tamayo Instructions Print Language: Cameroonian Discharge Orders/Prescriptions Prescriptions: New oxycodone 5 mg Tablet 5 mg PO Q4H PRN PRN (Reason: Pain Score 4-10) 5 Days Qty: 10 0RF No Action ferrous sulfate [Feosol] 325 mg (65 mg iron) tablet 325 mg PO QDAY Referrals / Follow Up: Smita Tamayo MD [Primary Care Provider] - Disposition Disposition (needs filled in before D/C Order can be placed): Home, Self Care
--- NOTE | 2024-03-15 10:13 | POSTOPAN2_ITS ---
Anesthesia Postop Eval I Sum Postop Eval Completion status Anesthesia document: Postop Eval 1 completed: Yes Anesthesia Postop Eval I Summary Anesthesia Postop Eval I Summary: Anesthesia Postop Eval I: Assessment Summary Airway patent Yes 03/15/24 09:33 TISSUE [email or web address] Spontaneous unlabored Yes 03/15/24 09:33 TISSUE [email or web address] respirations Mental status Awake 03/15/24 09:33 TISSUE [email or web address] nausea No 03/15/24 09:33 TISSUE [email or web address].[email or web address] Vomiting No 03/15/24 09:33 TISSUE [email or web address] Anesthesia Postop Eval I: Fluid Summary Crystalloid volume administer 20 03/15/24 09:33 TISSUE [email or web address] (ml) Colloids volume administered ( ml) Blood Product volume administered (ml) Total IV fluid infused 20 03/15/24 09:33 TISSUE [email or web address] Anesthesia Postop Eval I: Summary Notes Anesthesia Complication No 03/15/24 09:33 TISSUE [email or web address] Anesthesia Complication Comment: Post-operative progress note Anesthesia: Postop Eval II Evaluation Mental status: Awake Pain Level: 0 nausea: No Vomiting: No
--- NOTE | 2024-03-15 10:13 | PCM.POSTANE2 ---
Anesthesia Postop Eval I Sum Postop Eval Completion status Anesthesia document: Postop Eval 1 completed: Yes Anesthesia Postop Eval I Summary Anesthesia Postop Eval I Summary: Anesthesia Postop Eval I: Assessment Summary Airway patent Yes 03/15/24 09:33 DRESSAGE [email or web address] Spontaneous unlabored Yes 03/15/24 09:33 DRESSAGE JUDGE.JDEF respirations Mental status Awake 03/15/24 09:33 DRESSAGE JUDGE.JDEF nausea No 03/15/24 09:33 DRESSAGE JUDGE.JDEF Vomiting No 03/15/24 09:33 DRESSAGE JUDGE.JDEF Anesthesia Postop Eval I: Fluid Summary Crystalloid volume administer 20 03/15/24 09:33 DRESSAGE JUDGE.JDEF (ml) Colloids volume administered ( ml) Blood Product volume administered (ml) Total IV fluid infused 20 03/15/24 09:33 DRESSAGE JUDGE.JDEF Anesthesia Postop Eval I: Summary Notes Anesthesia Complication No 03/15/24 09:33 DRESSAGE JUDGE.JDEF Anesthesia Complication Comment: Post-operative progress note Anesthesia: Postop Eval II Evaluation Mental status: Awake Pain Level: 0 nausea: No Vomiting: No
== END 2024-03-15 10:58 | disposition home or self-care (01) ==
LOC: SDC 07:30 → AC 07:31
PROVIDERS: Anesthesiology; PCP Family Medicine; Referring Provider Surgery; Visit Provider Surgery
PROC: (CPT 19301; principal; 2024-03-15 08:45)
DX: D24.1 Benign neoplasm of right breast (principal)
CPT/HCPCS: 19125; 00400; 81025; 88305; A4216; J2405

== ENCOUNTER → 2024-06-18 | Outpatient (CLI) | payer OTHER, SELFPAY ==
[2024-06-18 08:17] LABS: Hemoglobin 12.5 g/dL (12.0-15.0); Mean Corp Hgb Conc 32.9 g/dL (32-36); Mean Corpuscular Hgb 29.3 pg (27.0-32.0); Mean Platelet Vol. 10.4 fl (6.2-12.0); Platelet Count 272 K/mm3 (150-450); RBC Distribution Width CV 12.8 % (11.6-14.6); RBC Distribution Width SD 41.8 fl (35.1-43.9); Red Blood Count 4.27 M/mm3 (4.2-5.4); White Blood Count 5.3 K/mm3 (4.4-11.0)
[2024-06-18 09:29] LABS: Ferritin 20 ng/mL (22-378)
[2024-06-18 16:37] LABS: CRP 3.26 mg/L (0.0-3.0); Iron 54 ug/dL (50-170)
== END | disposition home or self-care (01) ==
LOC: LAB 07:59
PROVIDERS: PCP Family Medicine; Referring Provider Internal Medicine Gastroenterology; Visit Provider Internal Medicine Gastroenterology
DX: D50.9 Iron deficiency anemia, unspecified (principal); K90.0 Celiac disease
CPT/HCPCS: 36415; 82728; 83540; 85027; 86140